=== PATIENT | male | born 1980 ===

== ENCOUNTER → 2021-01-04 14:38 | Outpatient (BNVA) | payer BC, SELFPAY | PROVIDERS: PCP Internal Medicine; Visit Provider Urology ==

== ENCOUNTER 2021-01-22 10:49 | Emergency (ER) | payer BC, SELFPAY ==
--- NOTE | ~2021-01-22 | XR_ITS ---
EXAMINATION: XR ELBOW, LEFT CLINICAL INFORMATION: Pain. COMPARISON: None TECHNIQUE: AP, lateral, and oblique views of the left elbow. FINDINGS: The bones and soft tissues are normal. No fracture or joint effusion. Alignment is anatomic. Joint spaces are maintained. XR/XR elbow LT 2V IMPRESSION: Normal left elbow.
[2021-01-22 11:09] VITALS: BP 142/89; PULSE 77; RESP 18; TEMP 36.5; O2SAT 96; BMI 34.9
--- NOTE | 2021-01-22 11:18 | ED_ITS ---
HPI - General Adult General Chief complaint: Extremity Injury, Lower Stated complaint: L ELBOW PAIN SWOLLEN Time Seen by Provider: 01/22/21 11:18 History of Present Illness HPI narrative: Patient complains of left elbow pain without injury for several days, no numbness no weakness no tingling no fever no other extremity pains, no swelling Related Data Home Medications Medication Instructions Recorded Confirmed betamethasone dipropionate 0.05 % applic TOPICAL BID 07/22/20 09/08/20 topical cream cholecalciferol (vitamin D3) 50 50 mcg PO DAILY 07/22/20 09/08/20 mcg (2,000 unit) tablet clotrimazole-betamethasone 1 0 applic TOPICAL 07/22/20 09/08/20 %-0.05 % topical cream doxycycline hyclate 50 mg capsule mg PO 07/22/20 09/08/20 hydrochlorothiazide 25 mg tablet 25 mg PO DAILY 07/22/20 09/08/20 Previous Rx's Medication Instructions Recorded acetaminophen 300 mg-codeine 30 mg 1 tab PO Q8H #7 tab 01/04/21 tablet diazepam 2 mg tablet 2 mg PO DAILY #2 tab 01/04/21 ibuprofen 600 mg PO Q6H PRN #20 tab 01/22/21 Allergies Allergy/AdvReac Type Severity Reaction Status Date / Time No Known Allergies Allergy Verified 09/08/20 10:46 Review of Systems Review of Systems: Positive for left elbow pain Negatives are no fever no chills no dizziness no weakness no headache no neck pain no back pain no chest pain no numbness weakness or tingling no rash PMFSH Past Medical History Source: nursing notes reviewed Surgical History History of removal of cyst Family History Family History (Updated 08/26/20 @ 13:34 by MARGIE Perez) Father No problems noted. Mother No problems noted. Social History Social History Advance Directives: No Advance Directives Information Provided: No Physical Exam Vital Signs: Vital Signs: Last Vital Signs Temp 97.7 F 01/22/21 11:09 Pulse 77 01/22/21 11:09 Resp 18 01/22/21 11:09 BP 142/89 H 01/22/21 11:09 Pulse Ox 96 01/22/21 11:09 Body Mass Index 34.9 General appearance is no acute distress Head is normocephalic atraumatic Neck is supple and nontender Back is supple and nontender The chest no respiratory distress no chest wall tenderness Extremities the left elbow had lateral tenderness, it had a full range of motion there is no redness or warmth the skin was normal and neurovascular intact distal Pain was reproduced with rotation and extension Skin no rash Neuro no motor sensory deficit Course Course Course Narrative: X-ray of left elbow was normal Exam is consistent with likely tendinitis and patient is referred to orthopedist Discharge Plan Discharge Clinical Impression: Tendinitis of left elbow Patient Disposition: Home, Self-Care Additional Instructions: X-ray of the left elbow was normal, on exam there is no sign of any infection This is most likely an inflammation of tendon and muscle so we will try anti- inflammatory ibuprofen Follow with orthopedist for possible steroid injection Return any time any worse condition or any concerns Prescriptions: New ibuprofen 600 mg tablet 600 mg PO Q6H PRN (Reason: pain) Qty: 20 RF: 0 No Action cholecalciferol (vitamin D3) 50 mcg (2,000 unit) tablet 50 mcg PO DAILY RF: 0 hydrochlorothiazide 25 mg tablet 25 mg PO DAILY RF: 0 doxycycline hyclate 50 mg capsule PO RF: 0 clotrimazole-betamethasone 1-0.05 % cream 0 applic topical RF: 0 betamethasone dipropionate 0.05 % cream topical BID RF: 0 acetaminophen-codeine 300-30 mg tablet 1 tab PO Q8H Qty: 7 RF: 0 diazepam [Valium] 2 mg tablet 2 mg PO DAILY Qty: 2 RF: 0 Referrals: Jeny Heart MD [Physician] - 2 days (Left elbow tendinitis) Stand Alone Forms: Work/School Release
== END 2021-01-22 13:09 | disposition home or self-care (01) ==
PROVIDERS: Emergency Provider Emergency Medicine; PCP Internal Medicine
DX: M77.12 Lateral epicondylitis, left elbow (principal); M25.522 Pain in left elbow; Z79.899 Other long term (current) drug therapy
CPT/HCPCS: 73070; 99283

== ENCOUNTER 2021-09-23 07:34 | Outpatient (REF) | payer BC, SELFPAY ==
[2021-09-23 07:46] LABS: MANUAL DIFF FLAG NO
[2021-09-23 08:40] LABS: Basophils Percent Auto 0.4 % (0-2); Eosinophils Absolute Auto 0.2 X10*3/uL (0.0-0.4); Eosinophils Percent Auto 2.2 % (0-4); Hematocrit 48.4 % (42.0-52.0); Hemoglobin 15.9 g/dl (14.0-18.0); Imm Gran Abs Auto 0.06 X10*3/uL (0.00-0.03); Imm Gran Pct Auto 0.9 % (0.0-0.4); Lymphocytes Absolute Auto 2.4 X10*3/uL (1.2-4.9); Lymphocytes Percent Auto 34.7 % (20-40); Mean Corpuscular HGB Conc 32.9 g/dl (31.0-36.0); Mean Corpuscular Hemoglobin 29.7 pg (27.0-33.0); Mean Corpuscular Volume 90.3 fL (80.0-98.0); Mean Platelet Volume 10.7 fL (9.4-12.4); Monocytes Absolute Auto 0.5 X10*3/uL (0.1-1.2); Monocytes Percent Auto 7.5 % (2-11); Neutrophils Absolute Auto 3.8 x10*3/uL (2.0-8.3); Neutrophils Percent Auto 54.3 % (45-73); Platelet Count 251 X10*3/uL (160-400); Red Blood Count 5.36 X10*6/uL (4.60-5.80); Red Cell Distribution Width 12.8 % (11.0-16.0)
[2021-09-23 09:08] LABS: Alanine Aminotransferase 42 U/L (0-40); Albumin Level 4.4 g/dL (3.5-5.0); Alkaline Phosphatase 104 U/L (39-117); Anion Gap 12 (12-20); Aspartate Amino Transferase 26 U/L (5-37); Bilirubin Total 0.4 mg/dL (0.0-1.0); Blood Urea Nitrogen 14 mg/dL (9-16); Calcium 9.7 mg/dL (8.4-10.2); Carbon Dioxide 29 mmol/L (22-29); Chloride 105 mmol/L (96-108); Cholesterol 180 mg/dL; Estimated Glomerular Filt Rate > 60; Glucose Fasting 95 mg/dL (60-99); HDL Cholesterol 44 mg/dL; LDL Cholesterol Calculated 122 mg/dl; Sodium 141 mmol/L (135-145); Total Protein 7.4 g/dL (6.5-8.0); Triglycerides 73 mg/dL
[2021-09-23 09:33] LABS: Thyroid Stimulating Hormone 2.38 uIU/mL (0.32-4.0)
== END 2021-09-23 07:35 | disposition home or self-care (01) ==
LOC: HO.LAB 07:34
PROVIDERS: PCP Internal Medicine; Visit Provider Internal Medicine
DX: Z00.00 Encounter for general adult medical examination without abnormal findings (principal); E03.9 Hypothyroidism, unspecified
CPT/HCPCS: 36415; 80053; 80061; 84443; 85025

== ENCOUNTER 2021-11-02 10:17 | Outpatient (REF) | payer BC, SELFPAY ==
[2021-11-02 10:54] LABS: Binax Internal Control QC Valid; Binax Now Covid-19 Ag Negative (Negative)
== END 2021-11-02 10:18 | disposition home or self-care (01) ==
LOC: HO.LAB 10:17
PROVIDERS: PCP Internal Medicine; Visit Provider Internal Medicine
DX: Z20.822 Contact with and (suspected) exposure to COVID-19 (principal)
CPT/HCPCS: C9803

== ENCOUNTER 2022-03-18 10:07 | Outpatient (REF) | payer OTHER, SELFPAY ==
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
== END 2022-03-18 10:08 | disposition home or self-care (01) ==
LOC: HO.HMGCX 10:07
PROVIDERS: PCP Nurse Practitioner Primary Care; Visit Provider Nurse Practitioner Acute Care
DX: M54.50 Low back pain, unspecified (principal); M54.6 Pain in thoracic spine; V89.2XXA Person injured in unspecified motor-vehicle accident, traffic, initial encounter; Y93.9 Activity, unspecified; Y92.9 Unspecified place or not applicable; Y99.9 Unspecified external cause status
CPT/HCPCS: 72070; 72100

== ENCOUNTER 2022-04-24 09:34 | Outpatient (REF) | payer BC, SELFPAY ==
--- NOTE | ~2022-04-24 | XR_ITS ---
EXAMINATION: XR wrist RT w scaphoid CLINICAL INFORMATION: Reason for Exam M25.531 - Pain in right wrist COMPARISON: None. TECHNIQUE: PA, oblique, lateral and scaphoid views of the right wrist FINDINGS: No acute fracture or dislocation. Joint spaces and articular surfaces are maintained. No erosive changes. Soft tissues unremarkable XR/XR wrist RT w scaphoid IMPRESSION: . Normal radiographic appearance of the right wrist
== END 2022-04-24 09:35 | disposition home or self-care (01) ==
LOC: HO.HMGCX 09:34
PROVIDERS: PCP Internal Medicine; Visit Provider Nurse Practitioner Family
DX: M25.531 Pain in right wrist (principal)
CPT/HCPCS: 73110

== ENCOUNTER 2023-01-04 08:32 | Emergency (ER) | payer BC, SELFPAY ==
--- NOTE | ~2023-01-04 | CT_ITS ---
EXAMINATION: CT ABDOMEN AND PELVIS WITH CONTRAST CLINICAL INFORMATION: 3 week left-sided abdominal pain COMPARISON: None available. TECHNIQUE: Multidetector volumetric images were obtained from the superior aspect of the liver through the pubic symphysis following administration 85 mL of Omnipaque 350 intravenous contrast. Sagittal and coronal reformatted images were obtained on the technologist's workstation. Oral contrast: No This CT examination was performed using dose optimization techniques as appropriate, variously including the following: *Automated exposure control *Adjustment of mA and/or kV according to patient size (this includes techniques or standardized protocols for targeted exams where dose is matched to indication/reason for exam; i.e. extremities or head) *Use of iterative reconstruction technique DLP: 673 mGy-cm FINDINGS: LUNG BASES: The visualized lung bases are unremarkable. LIVER, GALLBLADDER, AND BILIARY TREE: Liver is enlarged measuring up to 21.0 cm. Decreased hepatic attenuation suggesting hepatic steatosis. No focal hepatic lesion or biliary ductal dilatation is present. The gallbladder is unremarkable with no evidence of radiopaque gallstones, gallbladder wall thickening, or obvious pericholecystic inflammatory changes. PANCREAS: Unremarkable. SPLEEN: Unremarkable. ADRENAL GLANDS: Unremarkable. KIDNEYS AND URETERS: The kidneys are normal in size, shape, and attenuation. No hydronephrosis, hydroureter, or calculi seen. No perinephric stranding. BLADDER: Unremarkable. GASTROINTESTINAL TRACT: Colonic diverticulosis without acute diverticulitis. The small and large bowel are unremarkable. The appendix is unremarkable. ABDOMINAL WALL: No significant hernia is appreciated. LYMPH NODES: Normal. VASCULAR: Abdominal aorta is nonaneurysmal and demonstrates atherosclerotic calcifications. PELVIC VISCERA: Prostate measures up to 4.5 cm. OSSEOUS STRUCTURES: Unremarkable. CT/CT abdomen pelvis w IV con IMPRESSION: 1. No acute process of the abdomen or pelvis identified. 2. Enlarged liver measuring up to 21.0 cm with decreased hepatic attenuation suggesting hepatic steatosis. 3. Colonic diverticulosis without acute diverticulitis.
[2023-01-04 08:38] VITALS: BP 168/90; PULSE 66; RESP 19; TEMP 36.1; O2SAT 98; BMI 34.2
[2023-01-04 08:59] LABS: Appearance Urine Clear; Color Urine Yellow; Glucose Urine UA Negative (Negative); Leukocyte Esterase Urine Negative (Negative); Nitrite Urine Negative (Negative); PH 7.5 (5.0-9.0); Specific Gravity - Urine 1.015 (1.005-1.025); UMIC TRIGGER UACC YES; Urine Blood Trace (Negative); Urine Ketones Negative (Negative); Urine Protein Negative (Neg-Trace)
[2023-01-04 09:01] LABS: Bacteria Urine None Seen (None Seen); Hyaline Casts Urine 0-2 /LPF (0-2); RBC Urine 0-2 /HPF (0-2); Squamous Epithelial Cell Urine 0-2 /HPF (0-2); WBC Urine 0-5 /HPF (0-5)
--- NOTE | 2023-01-04 09:04 | PC.NURSE ---
LLQ abd pain x 3 weeks. Seen at UC and given abx for diverticulitis with unrelieved pain. Finished abx 2 days ago. Denies n/v/d, constipation with bleeding only with straining
[2023-01-04 09:07] LABS: MANUAL DIFF FLAG NO
--- NOTE | 2023-01-04 09:08 | ED_ITS ---
HPI - General Adult General Chief complaint: General Medical Stated complaint: L side pain Time Seen by Provider: 01/04/23 08:55 Source: patient Mode of arrival: ambulatory Limitations: no limitations History of Present Illness HPI narrative: 42-year-old male presents with left-sided abdominal pain. Pain started 3 weeks ago. Describes in left lower quadrant. The pain is intermittent. Currently pain is 7/10. The pain described as sharp. Pain does not radiate. There is no clear relieving or exacerbating features. He denies any nausea, vomiting or diarrhea. His has had some blood in the stool or but only when he feels somewhat constipated. Denies any urinary frequency, urgency or dysuria. Denies any flank pain or testicular pain. He has never had this pain before. He was seen at an urgent care was given a prescription for amoxicillin. He completed that course 2-3 days ago. Related Data Previous Rx's Medication Instructions Recorded cholecalciferol (vitamin D3) 50 50 mcg PO DAILY #90 tabs 06/10/21 mcg (2,000 unit) tablet hydrochlorothiazide 25 mg tablet 25 mg PO DAILY #90 tabs 03/22/22 amoxicillin 875 mg-potassium 1 tab PO BID #14 tabs 12/22/22 clavulanate 125 mg tablet dicyclomine 20 mg tablet 20 mg PO TID PRN abdominal 01/04/23 discomfort #14 tabs dgusoinq-tqvisqhca-dfjvgyemn 3.5 4 drp otic (ears) Q8H #10 mL 01/04/23 mg/mL-10,000 unit/mL-1 % ear solution ondansetron 4 mg disintegrating 4 mg PO Q8H PRN nausea and 01/04/23 tablet vomiting #10 tabs Allergies Allergy/AdvReac Type Severity Reaction Status Date / Time No Known Allergies Allergy Verified 11/21/22 08:29 [facility] Past Medical History Medical History Hypertension Obesity Surgical History History of removal of cyst [place] teeth extracted Family History Family History Father No problems noted. Mother No problems noted. Social History Social History Housing: Apartment Patient Tobacco Use Status: Never used Tobacco Smoked in Last 30 Days: No e-Cigarette/Vaping Use: Never Used Second Hand Smoke Exposure: No Use of substances other than those prescribed or required for medical reasons: Yes Substance Use Type: Marijuana Advance Directives: No Advance Directives Information Provided: No service: No Current occupational status: employed Cognitive needs: No Hearing needs: No Vision needs: No Physical Exam ED Vital Signs: Vital Signs - 24 hr 01/04/23 08:38 01/04/23 10:24 Temperature 97.0 F Pulse Rate 66 64 Respiratory Rate 19 14 Blood Pressure 168/90 H 171/89 H Pulse Oximetry 98 100 Oxygen Delivery Method Room Air Room Air BMI result Body Mass Index 34.2 GEN: Well developed, no acute distress, alert, oriented HEENT: Normocephalic, atraumatic, normal external ears, nose appears normal, no oropharyngeal edema or exudates Eyes: Normal to appearance Neck: Supple, no lymphadenopathy Respiratory: Talks in complete sentences, no respiratory distress, clear to auscultation bilaterally Cardiovascular: Regular rate and rhythm, no murmurs rubs or gallops Abdomen: Soft, nontender, nondistended, no guarding, no rebound Back: No CVA tenderness Extremities: No clubbing cyanosis or edema Neurologic: No focal neurologic deficits, cranial nerves 2-12 intact, strength is 5/5 bilaterally, gait normal Skin: No rash Course Course Course Narrative: 42-year-old male presents with 3 weeks of abdominal pain. The pain is left lower quadrant. Examination was benign. He was on antibiotics. Suspect diverticulitis, colitis, ulcerative colitis. Doubt perforated viscus, appendicitis, cholecystitis, pancreatitis, pyelonephritis. Will obtain a CT scan of the abdomen pelvis to make sure there were no complications from a possible treated diverticulitis. Will provide patient with analgesics and IV fluids Reevaluation(s) Reevaluation #1: The patient is feeling much better. We discussed all results. He will follow up with his primary care provider as needed. Time: 11:46 Medications Administered Discontinued Medications Generic Name Dose Route Start Last Admin Trade Name Freq PRN Reason Stop Dose Admin Sodium Chloride 1,000 mls @ 999 mls/hr 01/04/23 09:15 01/04/23 10:27 Ns IV 03/30/23 10:15 Infused .Q1H1M AMBROCIO Infusion Iohexol 100 ml 01/04/23 10:22 01/04/23 10:22 Iohexol 350 Mg/Ml 100 Ml Infus..Btl IV 01/04/23 10:23 85 ml ONCE ONE Administration Ketorolac Tromethamine 15 mg 01/04/23 09:06 01/04/23 09:19 Ketorolac Tromethamine 15 Mg/Ml Vial IVPUSH 01/04/23 09:07 15 mg ONCE ONE Administration Medical Decision Making Medical Decision Making [facility] Narrative: 42-year-old male presents with 3 weeks of abdominal pain. The pain is left l ower quadrant. Examination was benign. He was on antibiotics. Suspect diverticulitis, colitis, ulcerative colitis. Doubt perforated viscus, appendicitis, cholecystitis, pancreatitis, pyelonephritis. Will obtain a CT scan of the abdomen pelvis to make sure there were no complications from a poss ible treated diverticulitis. Will provide patient with analgesics and IV fluids Differential Diagnosis Differential Diagnoses: The differential diagnosis associated with the presentation includes (Diverticulitis, colitis, IBD, IBS, pyelonephritis, he sitting UTI, obstruction, perforation) Left-sided abdominal pain Admission/Observation Consideration of admission/observation: Escalation of care including admission/observation considered Lab Data [facility] Lab Attestation statement: I reviewed the patient's lab results. 01/04/23 09:04 01/04/23 09:04 Labs: Lab Results 01/04/23 01/04/23 01/04/23 Range/Units 08:52 09:04 09:04 WBC 6.4 (4.8-10.8) X10*3/uL RBC 5.42 (4.60-5.80) X10*6/uL Hgb 16.2 (14.0-18.0) g/dl Hct 47.8 (42.0-52.0) % MCV 88.2 (80.0-98.0) fL MCH 29.9 (27.0-33.0) pg MCHC 33.9 (31.0-36.0) g/dl RDW 12.5 (11.0-16.0) % Plt Count 252 (160-400) X10*3/uL MPV 10.1 (9.4-12.4) fL Immature Gran % (Auto) 0.9 H (0.0-0.4) % Neut % (Auto) 57.1 (45-73) % Lymph % (Auto) 32.6 (20-40) % [place] % (Auto) 6.9 (2-11) % Eos % (Auto) 2.0 (0-4) % Baso % (Auto) 0.5 (0-2) % Lymph # (Auto) 2.1 (1.2-4.9) X10*3/uL [place] # (Auto) 0.4 (0.1-1.2) X10*3/uL Eos # (Auto) 0.1 (0.0-0.4) X10*3/uL Baso # (Auto) 0.0 (0.0-0.2) X10*3/uL Abs Immat Gran (auto) 0.06 H (0.00-0.03) X10*3/uL Absolute Neuts (auto) 3.7 (2.0-8.3) x10*3/uL Absolute Nucleated RBC 0.000 (0.0-0.012) X10*3/uL Nucleated RBC % (auto) 0.0 (0.0-0.2) /100WBC Sodium 141 (135-145) mmol/L Potassium 4.3 (3.3-5.1) mmol/L Chloride 103 (96-108) mmol/L Carbon Dioxide 28 (22-29) mmol/L Anion Gap 14 (12-20) BUN 16 (9-16) mg/dL Creatinine 1.05 (0.5-1.4) mg/dL Estim Creat Clear Calc 106.1 Estimated GFR > 60 Random Glucose 103 (60-115) mg/dL Calcium 9.3 (8.4-10.2) mg/dL Total Bilirubin 0.4 (0.0-1.0) mg/dL AST 32 (5-37) U/L ALT 45 H (0-40) U/L Alkaline Phosphatase 93 (39-117) U/L Total Protein 7.0 (6.5-8.0) g/dL Albumin 4.3 (3.5-5.0) g/dL Urine Color Yellow Urine Appearance Clear Urine pH 7.5 (5.0-9.0) Ur Specific [place] 1.015 (1.005-1.025) Urine Protein Negative (Neg-Trace) mg/dL Urine Glucose (UA) Negative (Negative) mg/dL Urine Ketones Negative (Negative) mg/dL Urine Blood Trace H (Negative) Urine Nitrite Negative (Negative) Ur Leukocyte Esterase Negative (Negative) Urine RBC 0-2 (0-2) /HPF Urine WBC 0-5 (0-5) /HPF Ur Squamous Epith Cells 0-2 (0-2) /HPF Urine Bacteria None Seen (None Seen) Hyaline Casts 0-2 (0-2) /LPF Independent Interpretation I performed an independent interpretation of an: CT Scan (no acute pathology explaining symptoms) Radiology Impression Discussion of test interpretation with radiology: I have reviewed the radiologis t's reading. ( CT/CT abdomen pelvis w IV con IMPRESSION: 1. No acute process of the abdomen or pelvis identified. 2. Enlarged liver measuring up to 21.0 cm with decreased hepatic attenuation suggesting hepatic steatosis. 3. Colonic diverticulosis without acute diverticulitis. Dictated By:) Prescription Management I considered prescription management with: Pain Medication and Antibiotic Discharge Plan Discharge Clinical Impression: Acute left lower quadrant pain Patient Disposition: Home, Self-Care Instructions: Abdominal Pain (ED) Prescriptions: New ondansetron 4 mg tablet,disintegrating 4 mg PO Q8H PRN (Reason: nausea and vomiting) Qty: 10 0RF dicyclomine 20 mg tablet 20 mg PO TID PRN (Reason: abdominal discomfort) Qty: 14 0RF execpvxu-goaklshwy-RJ 3.5-10,000-1 mg/mL-unit/mL-% solution 4 drp otic (ears) Q8H Qty: 10 0RF No Action cholecalciferol (vitamin D3) 50 mcg (2,000 unit) tablet 50 mcg PO DAILY Qty: 90 8RF hydrochlorothiazide 25 mg tablet 25 mg PO DAILY Qty: 90 8RF amoxicillin-pot clavulanate 875-125 mg tablet 1 tab PO BID Qty: 14 0RF Referrals: Sana Grullon MD [Primary Care Provider] - 5 days Stand Alone Forms: Work/School Release
[2023-01-04 09:09] LABS: Basophils Percent Auto 0.5 % (0-2); Eosinophils Absolute Auto 0.1 X10*3/uL (0.0-0.4); Hematocrit 47.8 % (42.0-52.0); Hemoglobin 16.2 g/dl (14.0-18.0); Imm Gran Abs Auto 0.06 X10*3/uL (0.00-0.03); Imm Gran Pct Auto 0.9 % (0.0-0.4); Lymphocytes Absolute Auto 2.1 X10*3/uL (1.2-4.9); Lymphocytes Percent Auto 32.6 % (20-40); Mean Corpuscular HGB Conc 33.9 g/dl (31.0-36.0); Mean Corpuscular Hemoglobin 29.9 pg (27.0-33.0); Mean Corpuscular Volume 88.2 fL (80.0-98.0); Mean Platelet Volume 10.1 fL (9.4-12.4); Monocytes Absolute Auto 0.4 X10*3/uL (0.1-1.2); Monocytes Percent Auto 6.9 % (2-11); Neutrophils Absolute Auto 3.7 x10*3/uL (2.0-8.3); Neutrophils Percent Auto 57.1 % (45-73); Platelet Count 252 X10*3/uL (160-400); Red Blood Count 5.42 X10*6/uL (4.60-5.80); Red Cell Distribution Width 12.5 % (11.0-16.0); White Blood Count 6.4 X10*3/uL (4.8-10.8)
[2023-01-04] MEDS: Ketorolac Tromethamine 15 MG/ML VIAL IVPUSH (09:19)
[2023-01-04] MEDS: 0.9 % Sodium Chloride 1,000 ML 999 ML IV (09:19)
[2023-01-04 09:32] LABS: Alanine Aminotransferase 45 U/L (0-40); Albumin Level 4.3 g/dL (3.5-5.0); Alkaline Phosphatase 93 U/L (39-117); Anion Gap 14 (12-20); Aspartate Amino Transferase 32 U/L (5-37); Bilirubin Total 0.4 mg/dL (0.0-1.0); Blood Urea Nitrogen 16 mg/dL (9-16); Calcium 9.3 mg/dL (8.4-10.2); Carbon Dioxide 28 mmol/L (22-29); Chloride 103 mmol/L (96-108); Creatinine Clr Calc Pharmacy 106.1; Estimated Glomerular Filt Rate > 60; Glucose Random 103 mg/dL (60-115); Potassium 4.3 mmol/L (3.3-5.1); Sodium 141 mmol/L (135-145)
[2023-01-04] MEDS: iohexoL 350 MG/ML 100 ML INFUS..BTL IV (10:22)
[2023-01-04 10:24] VITALS: BP 171/89; PULSE 64; RESP 14; O2SAT 100
--- NOTE | 2023-01-04 10:27 | PC.NURSE ---
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
== END 2023-01-04 12:14 | disposition home or self-care (01) ==
PROVIDERS: Emergency Provider Emergency Medicine; PCP Internal Medicine
DX: R10.32 Left lower quadrant pain (principal); Z79.899 Other long term (current) drug therapy
CPT/HCPCS: 36415; 74177; 80053; 81001; 85025; 96361; 96374; 99284; J1885; Q9967

== ENCOUNTER 2023-04-24 08:45 | Outpatient (AMB) | payer BC, SELFPAY ==
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
[2023-04-24 08:53] VITALS: BP 140/98; PULSE 78; TEMP 36.7; O2SAT 98
== END 2023-04-24 10:08 | disposition home or self-care (01) ==
PROVIDERS: PCP Internal Medicine; Visit Provider Internal Medicine
DX: Z13.9 Encounter for screening, unspecified (principal); J06.9 Acute upper respiratory infection, unspecified
CPT/HCPCS: 87880; 99213

== ENCOUNTER 2023-12-20 09:04 | Outpatient (AMB) | payer OTHER, SELFPAY ==
[2023-12-20 09:06] VITALS: BP 144/98; PULSE 68; O2SAT 98; BMI 36.5
--- NOTE | 2023-12-20 09:06 | MHC.PC.OV ---
Vital Signs 12/20/23 09:06 Height 5 ft 8 in Weight 240 lb BMI 36.5 BP 144/98 H Blood Pressure Location Lt brachial Position Sitting Pulse 68 Pulse Source Pulse Oximeter Pulse Oximetry (%) 98 Oxygen Delivery Method Room Air Intake Visit Reasons: f/u HTN Cafeteria Or Lunchroom Checker Required: No Professional Caster: Not Required per policy Accompanied by: Self / Same As Patient Allergies No Known Allergies Allergy (Verified 12/20/23 09:07) Medication List - Last Reconciled 12/20/23 by Ponce Aceves MD amoxicillin 500 mg PO BID cholecalciferol (vitamin D3) 50 mcg PO DAILY dicyclomine 20 mg PO TID PRN hydrochlorothiazide 25 mg PO DAILY Tobacco use date assessed: 12/20/23 Dental Screening Dental Screen Date: 12/20/23 Did you have a dental visit in the last 12 months?: Yes Did you have a dental problem in the last 6 months where you did not have access to dental care?: No Was dental information given to patient?: Patient has dentist HPI f/u HTN HPI Details HTN on Rx; dietary indiscretion PFSH Medical History Hypertension Obesity Surgical History [place] teeth extracted History of removal of cyst Family History Father No problems noted. Mother No problems noted. Social History Housing: Apartment Patient Tobacco Use Status: Never used Tobacco e-Cigarette/Vaping Use: Never Used Second Hand Smoke Exposure: No Substance Use Type: Marijuana service: No Current occupational status: employed Cognitive needs: No Hearing needs: No Vision needs: No Questionnaire PHQ-9 Over the last 2 weeks, how often have you been bothered by any of the following problems? 1. Little interest or pleasure in doing things: not at all 2. Feeling down, depressed, or hopeless: not at all 3. Trouble falling or staying asleep, or sleeping too much: not at all 4. Feeling tired or having little energy: not at all 5. Poor appetite or overeating: not at all 6. Feeling bad about yourself - or that you are a failure or have let yourself or your family down: not at all 7. Trouble concentrating on things, such as reading the newspaper or watching television: not at all 8. Moving or speaking so slowly that other people could have noticed. Or the opposite - being so fidgety or restless that you have been moving around a lot more than usual: not at all 9. Thoughts that you would be better off or of hurting yourself in some way: not at all Total score: 0 Depression Screening Interpretation: Negative Depression Screening Done: Yes 88888 - PHQ-9 Billing: Yes Source: Developed by Drs. Junior Edouard, Kelly Goodwin, Papa Lamb and colleagues, with an educational trinity from [employer]. Thrive Questionnaire Date Thrive assessed: 12/20/23 I am a: Patient What is your living situation today?: I have a steady place to live Within the past 12 months, did the food you bought not last and you didn't have the money to get more?: Never true Within the past 12 months, did you worry whether your food would run out before you got money to buy more?: Never true Do you have trouble paying for medicines?: No Do you have trouble getting transportation to medical appointments?: No Do you have trouble paying your heating and electricity bill?: No Do you have trouble taking care of your child, family member or friend?: No Do you have trouble with day-to-day activities such as bathing, preparing meals, shopping, managing finances, etc.?: No Are you currently unemployed and looking for a job?: No Are you interested in more education?: No Please select the resources that you would like help with: None THRIVE Score: 0 AUDIT C Alcohol Use Questionnaire (AUDIT-C) 1. How often do you have a drink containing alcohol?: 2-3 times a week 2. How many drinks containing alcohol do you have on a typical day when you are drinking?: 3 or 4 3. How often do you have six or more drinks on one occasion?: Never Total Score: 4 Score Reviewed/Action Taken: Yes ERLINDA-7 AMB Questionnaire ERLINDA-7 Date ERLINDA - 7 assessed: 12/20/23 Feeling nervous, anxious, or on edge: 0 = Not at all Not being able to stop or control worryin = Not at all Worrying too much about different things: 0 = Not at all Trouble relaxin = Not at all Being so restless that it is hard to sit still: 0 = Not at all Becoming easily annoyed or irritable: 0 = Not at all Feeling afraid as if something awful might happen: 0 = Not at all Total ERLINDA-7 score (0-4 normal; 5-9 mild; 10-14 moderate; 15-21 severe): 0 Source: Developed by Drs. Junior Edouard, Kelly Goodwin, Papa Lamb and colleagues, with an educational trinity from [employer]. ERLINDA-7 Assessment Billing ERLINDA-7 Assessment Tool: ERLINDA-7 Assessment 00384 Review of Systems Const Denies chills, Denies headache(s) and Denies weight loss ENT Denies headache(s) Card Denies chest pain, Denies syncope, Denies irregular heart rhythm and Denies dyspnea Resp Denies chest congestion, Denies cough and Denies dyspnea GI Denies abdominal pain, Denies change in stool character, Denies nausea and Denies vomiting Musc Denies deformity and Denies joint swelling Neuro Denies syncope and Denies headache(s) Physical exam (Primary Care) Vital Signs: Last Vital Signs Pulse 68 12/20/23 09:06 BP 144/98 H 12/20/23 09:06 Pulse Ox 98 12/20/23 09:06 Oxygen Delivery Method Room Air 12/20/23 09:06 BMI result Body Mass Index 36.5 Tobacco/Smoking Status: Tobacco use Status Tobacco use date assessed 12/20/23 12/20/23 09:08 Patient Tobacco Use Status Never used Tobacco 12/20/23 09:08 e-Cigarette/Vaping Use Never Used 12/20/23 09:08 PHQ-9: PHQ-9 Score PHQ-9: Total score 0 12/20/23 09:13 Depression Screening Interpretation: Negative Thrive Assessment: Date of Thrive Assessment Date Thrive assessed 12/20/23 12/20/23 09:08 Const General: cooperative, comfortable, no acute distress and alert Neck Neck: Yes no lymphadenopathy Thyroid: Thyroid normal Resp Effort & Inspection: normal respiratory effort Auscultation: clear to auscultation bilaterally Percussion: percussion normal Cardio Jugular venous distension: no JVD Palpation: normal PMI Rate: regular rate Rhythm: regular rhythm Heart sounds: S1 normal heart sound present and S2 normal heart sound present GI Inspection: Yes normal to inspection Palpation (GI): No hepatosplenomegaly present Skin General skin exam: no rashes or lesions noted Extrem General: Yes no clubbing, cyanosis or edema Assessment and Plan Assessment & Plan (1) Hypertension: Code(s): I10 - Essential (primary) hypertension Plan: same rx Orders: Orders Lipid Panel Today E78.5 - Hyperlipidemia, unspecified Complete Blood Count Auto Diff Today D64.9 - Anemia, unspecified Comprehensive [place]. Panel Fast Today N28.9 - Disorder of kidney and ureter, unspecified Medications: Refilled dicyclomine 20 mg PO TID PRN 14 tabs 0RF abdominal discomfort doxycycline hyclate 50 mg PO DAILY 30 caps 8RF Coding Level of Care Code Est Pt Level 3 (87469) Diagnoses Hypertension I10 Additional Codes ERLINDA-7 Assessment Billing - ERLINDA-7 Assessment Tool: ERLINDA-7 Assessment 77408 ([id number])
== END 2023-12-20 11:16 | disposition home or self-care (01) ==
PROVIDERS: PCP Internal Medicine; Visit Provider Internal Medicine
DX: I10 Essential (primary) hypertension (principal)
CPT/HCPCS: 99213

== ENCOUNTER 2023-12-21 09:05 | Outpatient (REF) | payer OTHER, SELFPAY ==
[2023-12-21 09:27] LABS: MANUAL DIFF FLAG NO
[2023-12-21 09:37] LABS: Basophils Percent Auto 0.4 % (0-2); Eosinophils Absolute Auto 0.1 X10*3/uL (0.0-0.4); Eosinophils Percent Auto 1.1 % (0-4); Hematocrit 48.1 % (42.0-52.0); Hemoglobin 16.4 g/dl (14.0-18.0); Imm Gran Abs Auto 0.05 X10*3/uL (0.00-0.03); Imm Gran Pct Auto 0.6 % (0.0-0.4); Lymphocytes Absolute Auto 2.1 X10*3/uL (1.2-4.9); Mean Corpuscular HGB Conc 34.1 g/dl (31.0-36.0); Mean Corpuscular Volume 87.9 fL (80.0-98.0); Monocytes Absolute Auto 0.5 X10*3/uL (0.1-1.2); Monocytes Percent Auto 5.8 % (2-11); Neutrophils Absolute Auto 5.3 x10*3/uL (2.0-8.3); Neutrophils Percent Auto 66.1 % (45-73); Platelet Count 247 X10*3/uL (160-400); Red Blood Count 5.47 X10*6/uL (4.60-5.80); Red Cell Distribution Width 12.6 % (11.0-16.0)
[2023-12-21 10:03] LABS: Alanine Aminotransferase 57 U/L (0-40); Albumin Level 4.4 g/dL (3.5-5.0); Alkaline Phosphatase 96 U/L (39-117); Anion Gap 14 (12-20); Aspartate Amino Transferase 31 U/L (5-37); Bilirubin Total 0.2 mg/dL (0.0-1.0); Blood Urea Nitrogen 13 mg/dL (9-16); Calcium 9.5 mg/dL (8.4-10.2); Carbon Dioxide 27 mmol/L (22-29); Chloride 102 mmol/L (96-108); Cholesterol 196 mg/dL (<200); Estimated Glomerular Filt Rate > 60; Glucose Fasting 107 mg/dL (60-99); HDL Cholesterol 40 mg/dL (>40); LDL Cholesterol Calculated 122 mg/dL (<100); Potassium 3.8 mmol/L (3.3-5.1); Sodium 139 mmol/L (135-145); Total Protein 7.8 g/dL (6.5-8.0); Triglycerides 174 mg/dL (<150)
== END 2023-12-21 09:06 | disposition home or self-care (01) ==
LOC: HO.LAB 09:05
PROVIDERS: PCP Internal Medicine; Visit Provider Internal Medicine
DX: N28.9 Disorder of kidney and ureter, unspecified (principal); D64.9 Anemia, unspecified; E78.5 Hyperlipidemia, unspecified
CPT/HCPCS: 36415; 80053; 80061; 85025

== ENCOUNTER 2024-02-12 06:07 | Emergency (ER) | payer OTHER, SELFPAY ==
[2024-02-12 06:24] VITALS: BP 149/99; PULSE 69; RESP 14; TEMP 36.1; O2SAT 97; BMI 34.8
--- NOTE | 2024-02-12 08:49 | PC.NURSE ---
Pt ambulated with steady gait from waiting room, reporting an abscess on the back right side of head x3 days and has noticed it getting bigger. Reports intermittent h/a when lying down. NO drainage noted. Reports taking Tylenol last night with some help until he woke up this morning. Pt reports getting a haircut last week. Pt with no apparent distress, call rodriguez within reach, awaiting provider.
--- NOTE | 2024-02-12 09:24 | ED_ITS ---
HPI - General Adult General Chief complaint: General Medical Stated complaint: abscess on back of head, for about 4 days Time Seen by Provider: 02/12/24 09:08 Source: patient, RN notes reviewed and old records reviewed Mode of arrival: ambulatory Limitations: no limitations History of Present Illness HPI narrative: 43 year old male with pmhx significant for HTN, anxiety, and obesity presents to the ED today for evaluation of abscess to the back of his head x2 weeks. Admits to noticing a pimple to the back of his head 2 weeks ago that he scratches. He then went and got a haircut 5 days ago and since this time, the pimple has become more irritated. He can now feel a bump on the back of his head. Denies drainage or bleeding. Admits to headache last night while lying down. He took OTC Tylenol last night which temporarily relieved his headache. Denies vision changes, dizziness, syncope, fevers, chills, N/V, chest pain, sob. No IVDU. Related Data Previous Rx's ?Medication ?Instructions ?Recorded cholecalciferol (vitamin D3) 50 50 mcg PO DAILY #90 tabs 06/10/21 mcg (2,000 unit) tablet hydrochlorothiazide 25 mg tablet 25 mg PO DAILY #90 tabs 03/27/23 amoxicillin 500 mg tablet 500 mg PO BID #28 tabs 04/24/23 dicyclomine 20 mg tablet 20 mg PO TID PRN abdominal 12/20/23 discomfort #14 tabs doxycycline hyclate 50 mg capsule 50 mg PO DAILY #30 caps 12/20/23 [id number]-ulwamucbxkrny-dcpyzoep 1 cap PO Q8H PRN pain (scale score 02/12/24 50 mg-300 mg-40 mg capsule 7-10) #6 caps (Fioricet) cephalexin 500 mg capsule 500 mg PO QID 5 days #20 caps 02/12/24 doxycycline monohydrate 100 mg 100 mg PO BID 5 days #10 caps 02/12/24 capsule Allergies Allergy/AdvReac Type Severity Reaction Status Date / Time No Known Allergies Allergy Verified 02/12/24 06:26 Review of Systems 2 Review of Systems: Constitutional: No fever, chills, fatigue, night sweats, weight changes ENT/Mouth: No ear pain, hearing loss, nasal congestion, sinus pain, rhinorrhea, sore throat Eyes: No eye pain, swelling, redness, vision changes, discharge Cardio: No chest pain, palpitations, NEVAREZ, orthopnea, peripheral edema Pulm: No SOB, cough, sputum, wheezing, dyspnea, hemoptysis GI: No nausea, vomiting, hematemesis, abdominal pain, diarrhea, constipation, hematochezia, melena : No irregular bleeding, dysuria, frequency, urgency, hesitancy, hematuria, flank pain, urinary flow changes, urinary incontinence or retention MSK: No back pain, neck pain, joint pain, myalgias Skin: No rashes, +cellulitis Neuro: No weakness, numbness, paresthesias, LOC, dizziness, +headache Psych: No anxiety/panic, depression, SI/HI, AH/VH All other systems reviewed and are negative. [facility] Past Medical History Attestation statement: The following information was validated with the patient. Source: old records reviewed and nursing notes reviewed Medical History Obesity Hypertension Surgical History [place] teeth extracted History of removal of cyst Family History Family History Father No problems noted. Mother No problems noted. Social History Social History Housing: Apartment Patient Tobacco Use Status: Never used Tobacco e-Cigarette/Vaping Use: Never Used Second Hand Smoke Exposure: No Substance Use Type: Marijuana Advance Directives: No Advance Directives Information Provided: No Do you have a plan to hurt others: No Plan service: No Current occupational status: employed Cognitive needs: No Hearing needs: No Vision needs: No Physical Exam ED Vital Signs: Vital Signs - 24 hr 02/12/24 06:24 02/12/24 10:14 Temperature 97.0 F 98.2 F Pulse Rate 69 121 H Respiratory Rate 14 16 Blood Pressure 149/99 H 181/94 H Pulse Oximetry 97 98 Oxygen Delivery Method Room Air Room Air BMI result Body Mass Index 34.8 Patient hypertensive, vitals otherwise WNL Const General: cooperative, no acute distress, alert and awake Orientation/consciousness: patient oriented x3 Limitations: no limitations HENMT Head: Yes normal to inspection Head images: 2 1. small, 1.5 cm area of erythema and induration with minimal amount of crusting. no active drainage, discharge or bleeding. ttp. Indurated. No palpable fluctuance. Eyes General: appearance normal, both eyes and all related structures Conjunctivae: conjunctivae normal Sclerae: sclerae normal Pupils: Equal, round and reactive pupils present Neck Neck: Yes normal visual inspection, Yes full ROM, Yes no lymphadenopathy and Yes no meningeal signs Resp Effort & Inspection: normal respiratory effort Auscultation: clear to auscultation bilaterally Cardio Rate: regular rate Rhythm: regular rhythm Neuro General: patient oriented x3, gait normal, no meningeal signs and no focal motor deficits Cranial nerves: Yes Equal, round and reactive pupils present Gait exam (Neuro): Normal gait present Extrem General: Yes normal to inspection and Yes full ROM Course Course Course Narrative: 1000-- small area of cellulitis noted to back of head. No area of fluctuance that would warrant drainage however I was able to express some blood. Routine culture and Gram stain sent to lab. I informed patient that we will call him with any concerning results. I will be sending Keflex and doxy to pharmacy for cellulitis. No concern for acute systemic infection. Patient has remained stable throughout ED visit today. Discussed worrisome signs and symptoms and when to return to the ED. All questions answered at this time. Patient is agreeable with disposition and stable for discharge. Medications Administered Discontinued Medications Generic Name Dose Route Start Last Admin Trade Name Freq PRN Reason Stop Dose Admin Acetaminophen/Butalbital/Caffeine 1 tab 02/12/24 09:29 02/12/24 09:46 Butalb/Acetamin/Caff 50/325/40 Tablet PO 02/12/24 09:30 1 tab ONCE ONE Administration Cephalexin HCl 500 mg 02/12/24 09:33 02/12/24 09:47 Cephalexin 500 Mg Capsule PO 02/12/24 09:34 500 mg ONCE ONE Administration Doxycycline Monohydrate 100 mg 02/12/24 09:33 02/12/24 09:47 Doxycycline Monohydrate 100 Mg Capsule PO 02/12/24 09:34 100 mg ONCE ONE Administration Medical Decision Making Medical Decision Making MDM Narrative: 43 year old male with pmhx significant for HTN, anxiety, and obesity presents to the ED today for evaluation of abscess to the back of his head x2 weeks. Patient hypertensive, vitals otherwise WNL. He is nontoxic appearing in no acute distress. On exam, small, 1.5 cm area of erythema and induration with minimal amount of crusting. no active drainage, discharge or bleeding. ttp. Indurated. No palpable fluctuance. No rashes. Exam nonfocal. Differential diagnosis includes cellulitis, impetigo, ingrown hair follicle, insect bite. Low suspicion for abscess. Plan for gram stain and culture, abx admin, and discharge. Differential Diagnosis Differential Diagnoses: The differential diagnosis associated with the presentation includes as above. Admission/Observation Consideration of admission/observation: Escalation of care including admission/observation considered not indicated. External Record Review External record reviewed: Inpatient record Tests considered The following testing was considered but not selected: I considered ordering labs however no concern for systemic infection, not indicated. Prescription Management I considered prescription management with: Pain Medication and Antibiotic (Keflex, doxy) Social Determinants Patient?s care significantly limited by Social Determinants of Health including: Other Social Determinant of Health Critical Care Time Critical Care Time Critical Care Time: No Discharge Plan Discharge Clinical Impression: Cellulitis of head except face Patient Disposition: Home, Self-Care Instructions: Cellulitis (ED) Additional Instructions: Keflex is an antibiotic that has been sent to your pharmacy. Take this 4 times daily over the next 5 days as prescribed. Doxycycline is another antibiotic that has been sent to your pharmacy. Take this twice daily (every 12 hours) for the next 5 days. A small sample of the lesion was sent to the lab for further testing to ensure the antibiotics you are on are the correct coverage for bacteria. You will be called in a few days if the antibiotics need to be adjusted. Fioricet has been sent to your pharmacy for headache. Take this every 8 hours as needed for headache. do not take this with tylenol. You may also take Motrin at home. Follow up with your PCP. As discussed, return with new or worsening symptoms. In the case of an emergency call 911. Prescriptions: New cephalexin 500 mg capsule 500 mg PO QID 5 Days Qty: 20 0RF doxycycline monohydrate 100 mg capsule 100 mg PO BID 5 Days Qty: 10 0RF fioblrrhnv-lxfrluhjvwxiw-qkfq [Fioricet] 50-300-40 mg capsule 1 cap PO Q8H PRN (Reason: pain (scale score 7-10)) Qty: 6 0RF No Action cholecalciferol (vitamin D3) 50 mcg (2,000 unit) tablet 50 mcg PO DAILY Qty: 90 8RF hydrochlorothiazide 25 mg tablet 25 mg PO DAILY Qty: 90 8RF amoxicillin 500 mg tablet 500 mg PO BID Qty: 28 0RF dicyclomine 20 mg tablet 20 mg PO TID PRN (Reason: abdominal discomfort) Qty: 14 0RF doxycycline hyclate 50 mg capsule 50 mg PO DAILY Qty: 30 8RF Referrals: Sana Grullon MD [Primary Care Provider] - Stand Alone Forms: Work/School Release Interventions: ED Discharge Assessment Last Done: 02/12/24 10:14 Discharge Date/Time: 02/12/24 10:16 Print Language: Lithuanian
[2024-02-12] MEDS: Butalb/Acetamin/Caff 50/325/40 TABLET 1 TAB PO (09:46)
[2024-02-12] MEDS: cephALEXin 500 MG CAPSULE PO (09:47)
[2024-02-12] MEDS: Doxycycline Monohydrate 100 MG CAPSULE PO (09:47)
[2024-02-12 10:14] VITALS: BP 181/94; PULSE 121; RESP 16; TEMP 36.8; O2SAT 98
== END 2024-02-12 10:16 | disposition home or self-care (01) ==
PROVIDERS: Emergency Provider Emergency Medicine Emergency Medical Services; PCP Internal Medicine
DX: L03.811 Cellulitis of head [any part, except face] (principal); I10 Essential (primary) hypertension
CPT/HCPCS: 87070; 87077; 87186; 87205; 99283; 99284

== ENCOUNTER 2024-05-06 08:46 | Outpatient (AMB) | payer OTHER, SELFPAY ==
[2024-05-06 09:25] VITALS: BP 162/82; PULSE 67; TEMP 36.6; O2SAT 97
--- NOTE | 2024-05-06 09:25 | MHC.OFFWIV ---
Intake Vital Signs 05/06/24 09:25 Height 5 ft 8 in BP 162/82 H Blood Pressure Location Rt brachial Position Sitting Pulse 67 Pulse Source Pulse Oximeter Temp 97.9 F Temp Source Oral Pulse Oximetry (%) 97 Intake Visit Reasons: possible double ear infection Intake Note: pt is here for double ear infection and states he has mrsa Patient Tobacco Use Status: Never used Tobacco Allergies No Known Allergies Allergy (Verified 05/06/24 09:25) Do you need a note to return to daycare/school/sports/work: Yes HPI HPI Comments History of Present Illness Details Pt presents with bilateral ear infection seen at the ER 1 week ago. He was diagnosed with MRSA infection and prescribed Bactrim for 7 days and told to RT for refill if necessary. States he is still having pain but improved. [facility] Medical History Obesity Hypertension Surgical History [place] teeth extracted History of removal of cyst Family History Father No problems noted. Mother No problems noted. Social History Housing: Apartment Patient Tobacco Use Status: Never used Tobacco e-Cigarette/Vaping Use: Never Used Second Hand Smoke Exposure: No Substance Use Type: Marijuana service: No Current occupational status: employed Cognitive needs: No Hearing needs: No Vision needs: No Review of Systems Const All systems reviewed & are unremarkable except as noted in HPI and below Eyes Reports no additional complaints ENT Reports otalgia Card Reports no additional complaints Resp Reports no additional complaints GI Reports no additional complaints Physical Exam Vital Signs: Last Vital Signs Temp 97.9 F 05/06/24 09:25 Pulse 67 05/06/24 09:25 BP 162/82 H 05/06/24 09:25 Pulse Ox 97 05/06/24 09:25 Const General: healthy appearing and no acute distress HEENT Head: Yes normal to inspection, Yes normocephalic and Yes atraumatic Ears: hearing grossly normal bilaterally, TM's normal bilaterally and Abnormal EAC present erythema General nose exam: Normal external nose present Face and sinus: Yes normal facial exam Resp Effort & Inspection: normal respiratory effort Auscultation: clear to auscultation bilaterally Cardio Rate: regular rate Rhythm: regular rhythm Assessment & Plan Assessment & Plan (1) MRSA (methicillin resistant Staphylococcus aureus): Code(s): A49.02 - Methicillin resistant Staphylococcus aureus infection, unspecified site Plan: refill the Bactrim as indicated by the ER. F/u with PC Plan see plan Medications: New sulfamethoxazole-trimethoprim 800-160 mg (Bactrim DS) 1 tab PO BID 7 days 14 tabs 0RF Coding Level of Care Code Est Pt Level 3 (54449) Diagnoses MRSA (methicillin resistant Staphylococcus aureus) A49.02
== END 2024-05-06 10:08 | disposition home or self-care (01) ==
PROVIDERS: PCP Internal Medicine; Visit Provider Physician Assistant Medical
DX: A49.02 Methicillin resistant Staphylococcus aureus infection, unspecified site (principal)
CPT/HCPCS: 99213

== ENCOUNTER 2024-08-24 08:37 | Emergency (ER) | payer BC, SELFPAY ==
--- NOTE | ~2024-08-24 | XR_ITS ---
EXAMINATION: XR RIBS, RIGHT CLINICAL INFORMATION: Cough. Question fracture. COMPARISON: None available. TECHNIQUE: PA view the chest as well as 3 views of the right ribs. FINDINGS: Lungs are clear. No consolidation, pneumothorax, or pleural effusion. The cardiomediastinal silhouette and pulmonary vasculature are normal. Osseous structures are unremarkable. Ribs are intact. No fractures are identified. XR/XR ribs RT min 3V w CXR1V IMPRESSION: No displaced fracture. Electronically signed by: Bigg Aguayo MD 08/24/2024 10:26 AM ROB
[2024-08-24 08:42] VITALS: BP 163/79; PULSE 65; RESP 20; TEMP 36.6; O2SAT 98; BMI 33.9
[2024-08-24 08:59] LABS: MANUAL DIFF FLAG NO
[2024-08-24 09:00] LABS: Basophils Percent Auto 0.3 % (0-2); Eosinophils Absolute Auto 0.1 X10*3/uL (0.0-0.4); Eosinophils Percent Auto 1.7 % (0-4); Hematocrit 47.2 % (42.0-52.0); Hemoglobin 16.1 g/dl (14.0-18.0); Imm Gran Abs Auto 0.04 X10*3/uL (0.00-0.03); Imm Gran Pct Auto 0.7 % (0.0-0.4); Lymphocytes Absolute Auto 1.8 X10*3/uL (1.2-4.9); Lymphocytes Percent Auto 30.6 % (20-40); Mean Corpuscular HGB Conc 34.1 g/dl (31.0-36.0); Mean Corpuscular Hemoglobin 30.4 pg (27.0-33.0); Mean Corpuscular Volume 89.2 fL (80.0-98.0); Mean Platelet Volume 10.5 fL (9.4-12.4); Monocytes Absolute Auto 0.5 X10*3/uL (0.1-1.2); Monocytes Percent Auto 8.5 % (2-11); Neutrophils Absolute Auto 3.4 x10*3/uL (2.0-8.3); Neutrophils Percent Auto 58.2 % (45-73); Platelet Count 210 X10*3/uL (160-400); Red Blood Count 5.29 X10*6/uL (4.60-5.80); Red Cell Distribution Width 12.5 % (11.0-16.0); White Blood Count 5.9 X10*3/uL (4.8-10.8)
[2024-08-24 09:01] LABS: Appearance Urine Clear; Color Urine Yellow; Glucose Urine UA Negative (Negative); Leukocyte Esterase Urine Negative (Negative); Nitrite Urine Negative (Negative); PH 7.5 (5.0-9.0); Specific Gravity - Urine 1.015 (1.005-1.025); Urine Blood Negative (Negative); Urine Ketones Negative (Negative); Urine Protein Negative (Neg-Trace)
--- NOTE | 2024-08-24 09:07 | ED.GENADULT ---
HPI - General Adult General Chief complaint: General Medical Stated complaint: R flank pain Time Seen by Provider: 08/24/24 09:02 Source: patient Mode of arrival: ambulatory Limitations: no limitations History of Present Illness ED Provider: Alysha EMMANUEL narrative: Patient is a 43-year-old male with history of HTN presenting to the emergency department with complaint of right sided rib/flank pain. States pain is worse with movement and improves with rest. Reports recent URI with frequent coughing and fevers. Denies fevers for past several days. Denies any hematuria, dysuria, frequency or other urinary symptoms. Has not taken any rynk-mef-lwfunka medications for symptoms. MD complaint: rib pain Onset (ago): day(s) Severity: severe Quality: aching Pain Consistency: colicky Relieving factors: rest Exacerbating factors: movement Associated symptoms: cough Treatments prior to arrival: none Related Data Previous Rx's ?Medication ?Instructions ?Recorded cholecalciferol (vitamin D3) 50 50 mcg PO DAILY #90 tabs 06/10/21 mcg (2,000 unit) tablet doxycycline hyclate 50 mg capsule 50 mg PO DAILY #30 caps 12/20/23 dmhnwstkve-qtnjbnkfzvvjc-rmojmywe 1 cap PO Q8H PRN pain (scale score 02/12/24 50 mg-300 mg-40 mg capsule 7-10) #6 caps (Fioricet) sulfamethoxazole 800 1 tab PO BID 7 days #14 tabs 05/06/24 mg-trimethoprim 160 mg tablet (Bactrim DS) hydrochlorothiazide 25 mg tablet 25 mg PO DAILY #90 tabs 06/02/24 cyclobenzaprine 10 mg tablet 10 mg PO TID PRN muscle spasm #14 08/24/24 tabs lidocaine 5 % topical patch 1 patch topical DAILY #15 ea 08/24/24 Allergies Allergy/AdvReac Type Severity Reaction Status Date / Time No Known Allergies Allergy Verified 08/24/24 08:45 Review of Systems Review of Systems: As per HPI Yes all other systems are reviewed and are negative Constitutional: Constitutional: Reports as per HPI [facility] Past Medical History Medical History Obesity Hypertension Surgical History [place] teeth extracted History of removal of cyst Family History Family History Father No problems noted. Mother No problems noted. Social History Social History Housing: Apartment Patient Tobacco Use Status: Never used Tobacco e-Cigarette/Vaping Use: Never Used Second Hand Smoke Exposure: No Substance Use Type: Marijuana Advance Directives: No Advance Directives Information Provided: Yes Do you have a plan to hurt others: No Plan service: No Current occupational status: employed Cognitive needs: No Hearing needs: No Vision needs: No Physical Exam ED Vital Signs: Vital Signs - 24 hr 08/24/24 08:42 Temperature 98 F Pulse Rate 65 Respiratory Rate 20 Blood Pressure 163/79 H Pulse Oximetry 98 Oxygen Delivery Method Room Air BMI result Body Mass Index 33.9 Vital signs have been reviewed and appear to be correct. Blood pressure elevated. Heart rate normal. Respiratory rate normal. Temperature normal. Oxygen saturation normal. Const General: cooperative, healthy appearing and no acute distress Orientation/consciousness: oriented to person, oriented to place, oriented to time and patient oriented x3 Limitations: no limitations HENMT Head: Yes normocephalic and Yes atraumatic Ears: external ears normal General nose exam: Normal external nose present Face and sinus: Yes face symmetric Mouth: oropharynx normal and moist mucous membranes Throat: Yes uvula midline Eyes Pupils: Equal, round and reactive pupils present Neck Neck: Yes normal visual inspection and Yes supple Chest Chest palpation & inspection: normal inspection of the chest and tenderness rib right posterior-axillary line involving the 6th rib, involving the 7th rib and involving the 8th rib Resp Effort & Inspection: normal respiratory effort and able to speak in complete sentences Auscultation: clear to auscultation bilaterally Cardio Rate: regular rate Rhythm: regular rhythm Heart sounds: S1 normal heart sound present and S2 normal heart sound present GI Palpation (GI): Soft to palpation and nontender Auscultation: normoactive bowel sounds General: Yes no CVA tenderness Back/Spine/Pelvis Back: no CVA tenderness Skin General skin exam: elasticity normal and turgor normal Neuro General: oriented to person, oriented to place, oriented to time, patient oriented x3, moves all extremities, no focal motor deficits and CN's II-XI intact bilaterally Cranial nerves: Yes Equal, round and reactive pupils present Cognition (Neuro): normal cognition Extrem General: Yes full ROM, Yes no pedal edema and Yes no calf tenderness Psych Mental Status: mental status grossly normal Affect: normal affect Thought process: Normal thought process present Medical Decision Making Medical Decision Making [facility] Narrative: Patient is a 43-year-old male with history of HTN presenting to the emergency department with complaint of right sided rib/flank pain. On exam patient is awake, A+Ox3, BP elevated, VS otherwise WNL, afebrile, normal neurological exam without focal deficits, physical exam findings as above. Given reported symptoms and physical exam findings, initial differential includes costochondritis, muscle strain, pneumonia, rib fracture. Labs unremarkable. Urinalysis is without evidence of infection, no blood noted. Unlikely renal colic/calculi. X-ray notable for no evidence of rib fracture or pneumonia. My interpretation is in agreement with the radiologist's interpretation. Based on physical exam findings, symptoms most consistent with muscle strain. Results discussed with patient all questions answered. Will send prescription for muscle relaxers as well as topical lidocaine patches, advised Tylenol ibuprofen. Follow up with PCP. Return precautions discussed. Patient verbalized understanding of and agreement with plan. Differential Diagnosis Differential Diagnoses: The differential diagnosis associated with the presentation includes As per [facility] Lab Data [facility] Lab Attestation statement: I reviewed the patient's lab results. As per [facility] 08/24/24 08:55 08/24/24 08:54 Labs: Lab Results 08/24/24 08/24/24 Range/Units 08:54 08:55 WBC 5.9 (4.8-10.8) X10*3/uL RBC 5.29 (4.60-5.80) X10*6/uL Hgb 16.1 (14.0-18.0) g/dl Hct 47.2 (42.0-52.0) % MCV 89.2 (80.0-98.0) fL MCH 30.4 (27.0-33.0) pg MCHC 34.1 (31.0-36.0) g/dl RDW 12.5 (11.0-16.0) % Plt Count 210 (160-400) X10*3/uL MPV 10.5 (9.4-12.4) fL Immature Gran % (Auto) 0.7 H (0.0-0.4) % Neut % (Auto) 58.2 (45-73) % Lymph % (Auto) 30.6 (20-40) % [place] % (Auto) 8.5 (2-11) % Eos % (Auto) 1.7 (0-4) % Baso % (Auto) 0.3 (0-2) % Lymph # (Auto) 1.8 (1.2-4.9) X10*3/uL [place] # (Auto) 0.5 (0.1-1.2) X10*3/uL Eos # (Auto) 0.1 (0.0-0.4) X10*3/uL Baso # (Auto) 0.0 (0.0-0.2) X10*3/uL Abs Immat Gran (auto) 0.04 H (0.00-0.03) X10*3/uL Absolute Neuts (auto) 3.4 (2.0-8.3) x10*3/uL Absolute Nucleated RBC 0.000 (0.0-0.012) X10*3/uL Nucleated RBC % (auto) 0.0 (0.0-0.2) /100WBC Sodium 141 (135-145) mmol/L Potassium 3.9 (3.3-5.1) mmol/L Chloride 104 (96-108) mmol/L Carbon Dioxide 30 H (22-29) mmol/L Anion Gap 11 L (12-20) BUN 13 (9-16) mg/dL Creatinine 0.77 (0.5-1.4) mg/dL Estim Creat Clear Calc 142.4 Estimated GFR > 60 Random Glucose 98 (60-115) mg/dL Calcium 9.4 (8.4-10.2) mg/dL Total Bilirubin 0.3 (0.0-1.0) mg/dL Direct Bilirubin 0.1 (0.0-0.5) mg/dL AST 28 (5-37) U/L ALT 68 H (0-40) U/L Alkaline Phosphatase 99 (39-117) U/L Total Protein 7.3 (6.5-8.0) g/dL Albumin 4.4 (3.5-5.0) g/dL Lipase 50 (8-78) U/L Urine Color Yellow Urine Appearance Clear Urine pH 7.5 (5.0-9.0) Ur Specific [place] 1.015 (1.005-1.025) Urine Protein Negative (Neg-Trace) mg/dL Urine Glucose (UA) Negative (Negative) mg/dL Urine Ketones Negative (Negative) mg/dL Urine Blood Negative (Negative) Urine Nitrite Negative (Negative) Ur Leukocyte Esterase Negative (Negative) Independent Interpretation I performed an independent interpretation of an: Plain X-Ray Interpretation: No evidence of rib fracture, pneumonia on x-ray. Radiology Impression Discussion of test interpretation with radiology: I have reviewed the radiologist's reading. Radiologist Impression: XR/XR ribs RT min 3V w CXR1V IMPRESSION: No displaced fracture. External Record Review External record reviewed: Inpatient record, Office record and Outpatient record Prescription Management I considered prescription management with: Pain Medication and Other Discharge Plan Discharge Clinical Impression: Muscle strain Patient Disposition: Home, Self-Care Instructions: Muscle Strain (DC) Additional Instructions: You were evaluated in the emergency department today for back pain. Your x-ray did not show evidence pneumonia or rib fracture. Your pain is likely due to a muscle strain from coughing. You are being sent prescriptions for a muscle relaxer as well as topical lidocaine patches. You can wear the lidocaine patches for up to 12 hours in a 24 hour period. Do not apply heat directly over the patches. We also recommend that you take 600 mg of ibuprofen or 650 mg of Tylenol every 6 hours as needed for pain. If necessary, you can alternate these medications every 3 hours. For example, at 9:00 a.m. take Tylenol, then at noon take ibuprofen, then at 3:00 p.m. take Tylenol, etc.. Follow-up with your primary care provider. Return to the emergency department with new or concerning symptoms. Prescriptions: New cyclobenzaprine 10 mg tablet 10 mg PO TID PRN (Reason: muscle spasm) Qty: 14 0RF lidocaine 5 % adhesive patch,medicated 1 patch topical DAILY Qty: 15 0RF Rx Instructions: leave on most painful area for up to 12 hrs No Action cholecalciferol (vitamin D3) 50 mcg (2,000 unit) tablet 50 mcg PO DAILY Qty: 90 8RF hydrochlorothiazide 25 mg tablet 25 mg PO DAILY Qty: 90 8RF qsqtdlntqo-moqeiahubyvfa-inbx [Fioricet] 50-300-40 mg capsule 1 cap PO Q8H PRN (Reason: pain (scale score 7-10)) Qty: 6 0RF doxycycline hyclate 50 mg capsule 50 mg PO DAILY Qty: 30 8RF sulfamethoxazole-trimethoprim [Bactrim DS] 800-160 mg tablet 1 tab PO BID 7 Days Qty: 14 0RF Print Language: Upper Sorbian
[2024-08-24 09:15] LABS: Alanine Aminotransferase 68 U/L (0-40); Albumin Level 4.4 g/dL (3.5-5.0); Alkaline Phosphatase 99 U/L (39-117); Anion Gap 11 (12-20); Aspartate Amino Transferase 28 U/L (5-37); Bilirubin Direct 0.1 mg/dL (0.0-0.5); Bilirubin Total 0.3 mg/dL (0.0-1.0); Blood Urea Nitrogen 13 mg/dL (9-16); Calcium 9.4 mg/dL (8.4-10.2); Carbon Dioxide 30 mmol/L (22-29); Chloride 104 mmol/L (96-108); Creatinine Clr Calc Pharmacy 142.4; Estimated Glomerular Filt Rate > 60; Glucose Random 98 mg/dL (60-115); Lipase 50 U/L (8-78); Potassium 3.9 mmol/L (3.3-5.1); Sodium 141 mmol/L (135-145); Total Protein 7.3 g/dL (6.5-8.0)
[2024-08-24 10:52] VITALS: BP 163/79; PULSE 65; RESP 20; TEMP 36.6; O2SAT 98
== END 2024-08-24 10:53 | disposition home or self-care (01) ==
PROVIDERS: Emergency Provider Emergency Medicine; PCP Internal Medicine
DX: R07.81 Pleurodynia (principal); R10.2 Pelvic and perineal pain; Z79.899 Other long term (current) drug therapy
CPT/HCPCS: 36415; 71101; 80048; 80076; 81003; 83690; 85025; 99282; 99283

== ENCOUNTER 2024-08-28 07:26 | Outpatient (AMB) | payer BC, SELFPAY ==
--- NOTE | 2024-08-28 07:31 | MHC.PC.OV ---
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: No Accompanied by: Self / Same As Patient Allergies No Known Allergies Allergy (Verified 08/28/24 07:43) Medication List - Last Reconciled 08/28/24 by Sana Mathur MD cholecalciferol (vitamin D3) 50 mcg PO DAILY cyclobenzaprine 10 mg PO TID PRN hydrochlorothiazide 25 mg PO DAILY Tobacco use date assessed: 12/20/23 Dental Screening Dental Screen Date: 08/28/24 Did you have a dental visit in the last 12 months?: No Did you have a dental problem in the last 6 months where you did not have access to dental care?: No Was dental information given to patient?: Patient has dentist HPI HPI Comments History of Present Illness Details The patient is a 43-year-old male presenting with muscle pain and rash for his physical exam. The muscle pain has been managed with cyclobenzaprine, 10 mg three times daily as needed, which he reports experiencing primarily in the ribs. A recent hospital visit included an X-ray, which showed no rib fractures. Cyclobenzaprine and ibuprofen provide some relief. There is a history of mild depression, potentially exacerbated by the recent passing of his mother in December due to complications from diabetes. Additionally, the patient has a recurring rash on the chest similar to previous MRSA-related rashes, suspected to be Jessica Intertrigo but requires further evaluation. The patient reports a history of a pilonidal cyst removal in 2015 and wisdom teeth extraction. He takes hydrochlorothiazide, 25 mg daily, for hypertension, and vitamin D 50 mcg daily for deficiency. No allergies to medications are reported. - Blood sugar level previously recorded as excellent (98). - Vitamin D level monitoring planned. - Discussion about the need for the Tdap vaccination since the last was in 2010. [facility] Medical History Obesity Hypertension Surgical History [place] teeth extracted History of removal of cyst Family History (Updated 08/28/24 @ 07:51 by Sana Mathur MD) Father No problems noted. Mother Diabetes mellitus, Onset Age: 58 Social History (Updated 08/28/24 @ 07:51 by Sana Mathur MD) Housing: Apartment Alcohol intake: current Alcohol intake frequency: a few times a month Alcohol type: beer Patient Tobacco Use Status: Never used Tobacco e-Cigarette/Vaping Use: Never Used Second Hand Smoke Exposure: No Substance Use Type: Marijuana service: No Current occupational status: employed Current occupational exposures/hazards: No Cognitive needs: No Hearing needs: No Vision needs: No Questionnaire PHQ-9 Over the last 2 weeks, how often have you been bothered by any of the following problems? 1. Little interest or pleasure in doing things: several days 2. Feeling down, depressed, or hopeless: not at all 3. Trouble falling or staying asleep, or sleeping too much: several days 4. Feeling tired or having little energy: not at all 5. Poor appetite or overeating: several days 6. Feeling bad about yourself - or that you are a failure or have let yourself or your family down: several days 7. Trouble concentrating on things, such as reading the newspaper or watching television: several days 8. Moving or speaking so slowly that other people could have noticed. Or the opposite - being so fidgety or restless that you have been moving around a lot more than usual: not at all 9. Thoughts that you would be better off or of hurting yourself in some way: not at all Total score: 5 Depression Screening Interpretation: Positive Depression Screening Follow-up: Existing condition, Follow-up Visit Requested and Declines treatment Depression Screening Done: Yes 33599 - PHQ-9 Billing: Yes Source: Developed by Drs. Junior Edouard, Kelly Goodwin, Papa Lamb and colleagues, with an educational trinity from [employer]. Thrive Questionnaire Date Thrive assessed: 08/28/24 I am a: Patient What is your living situation today?: I choose not to answer this question Within the past 12 months, did the food you bought not last and you didn't have the money to get more?: Often true Within the past 12 months, did you worry whether your food would run out before you got money to buy more?: Often true Do you have trouble paying for medicines?: Yes Do you have trouble getting transportation to medical appointments?: No Do you have trouble paying your heating and electricity bill?: No Do you have trouble taking care of your child, family member or friend?: No Do you have trouble with day-to-day activities such as bathing, preparing meals, shopping, managing finances, etc.?: No Are you currently unemployed and looking for a job?: No Are you interested in more education?: No Please select the resources that you would like help with: Paying for medicine and None Currently or been in a relationship where the following occur: I choose not to answer THRIVE Score: 2 AUDIT C Alcohol Use Questionnaire (AUDIT-C) 1. How often do you have a drink containing alcohol?: 2-4 times a month 2. How many drinks containing alcohol do you have on a typical day when you are drinking?: 3 or 4 3. How often do you have six or more drinks on one occasion?: Never Total Score: 3 Score Reviewed/Action Taken: No ERLINDA-7 AMB Questionnaire ERLINDA-7 Date ERLINDA - 7 assessed: 08/28/24 Feeling nervous, anxious, or on edge: 0 = Not at all Not being able to stop or control worryin = Not at all Worrying too much about different things: 0 = Not at all Trouble relaxin = Not at all Being so restless that it is hard to sit still: 0 = Not at all Becoming easily annoyed or irritable: 0 = Not at all Feeling afraid as if something awful might happen: 0 = Not at all Total ERLINDA-7 score (0-4 normal; 5-9 mild; 10-14 moderate; 15-21 severe): 0 Source: Developed by Drs. Junior Edouard, Kelly Goodwin, Papa Lamb and colleagues, with an educational trinity from [employer]. ERLINDA-7 Assessment Billing ERLINDA-7 Assessment Tool: ERLINDA-7 Assessment 99993 Review of Systems Const All systems reviewed & are unremarkable except as noted in HPI and below Card Denies chest pain at rest, Denies chest pain with activity, Denies edema, Denies irregular heart rhythm, Denies claudication, Denies dyspnea, Denies dyspnea on exertion, Denies orthopnea, Denies paroxysmal nocturnal dyspnea and Denies slow heart rate Resp Denies cough, Denies dyspnea and Denies dyspnea on exertion GI Denies abdominal pain, Denies change in bowel habits, Denies excessive flatus, Denies nausea and Denies vomiting Denies urinary hesitancy, Denies urinary incontinence and Denies urinary urgency Musc Denies abnormal gait, Reports back pain, Denies atrophy, Denies deformity, Denies limited range of motion and Reports muscle cramps Skin/Breast Denies bleeding lesions, Denies changing lesions and Denies rash Neuro Denies abnormal gait, Denies behavioral changes and Denies lack of coordination Psych Denies behavioral changes Physical exam (Primary Care) Vital Signs: Last Vital Signs BP 138/88 08/28/24 08:03 BMI result Body Mass Index 33.9 BMI Assessment/Plan discussion: High BMI High, discussed plan: lifestyle, weight reduction, dietary and physical activity Tobacco/Smoking Status: Tobacco use Status Tobacco use date assessed 12/20/23 08/28/24 07:38 Patient Tobacco Use Status Never used Tobacco 08/28/24 07:51 e-Cigarette/Vaping Use Never Used 08/28/24 07:51 PHQ-9: PHQ-9 Score PHQ-9: Total score 5 08/28/24 08:07 Depression Screening Interpretation: Positive Depression Screening Follow-up: Existing condition, Follow-up Visit Requested and Declines treatment Thrive Assessment: Date of Thrive Assessment Date Thrive assessed 08/28/24 08/28/24 07:38 Currently or been in a relationship where the following occur: I choose not to answer [facility] Head: Yes normal to inspection, Yes normocephalic and Yes atraumatic Ears: external ears normal Eyes General: appearance normal, both eyes and all related structures Eyelids: Yes eyelids normal Conjunctivae: conjunctivae normal Neck Neck: Yes normal visual inspection and Yes supple Resp Effort & Inspection: normal respiratory effort Auscultation: clear to auscultation bilaterally Cardio Jugular venous distension: no JVD Rate: regular rate Rhythm: regular rhythm Heart sounds: S1 normal heart sound present and S2 normal heart sound present GI Inspection: Yes normal to inspection Palpation (GI): Soft to palpation and nontender Auscultation: normal bowel sounds Skin General skin exam: no rashes or lesions noted Neuro General: no focal motor deficits Extrem General: Yes full ROM Psych Appearance: grossly normal Office Procedures Flu Questionnaire Does the patient have a severe egg allergy?: No Immunizations Fluarix Triv [id number] (PF) 45 mcg (15 mcg x 3)/0.5 mL IM syringe Performing Provider: Sana Mathur MD Performing Location: [facility] Documented (not given) by: MARGIE Shaver on 08/28/24 07:41 Reason Not Given: Patient Refused Boostrix Tdap 2.5 Lf unit-8 mcg-5 Lf/0.5 mL intramuscular syringe Performing Provider: Sana Mathur MD Performing Location: [facility] Administered by: MARGIE Shaver on 08/28/24 08:08 Dose Route Admin Location Dispensed Lot Number Expiration Date NDC Ingot Stripper 0.5 mL IM Left Deltoid 0.5 mL [id number] 10/29/26 04326-590-05 [employer] VIS Given Date VIS Provided VIS Publication Date 08/28/24 Single Vaccine 21 Eligibility Eligibility Date Funding Source Not [facility] Eligible 08/28/24 Private Coding Level of Care Code Est Pt Level 3 (71609) Est Pt Prev Care 40-64y(24119) Diagnoses Physical exam Z00.00 Candidal intertrigo B37.2 Acute bilateral thoracic back pain M54.6 Chronicity: acute Back pain laterality: bilateral Additional Codes ERLINDA-7 Assessment Billing - ERLINDA-7 Assessment Tool: ERLINDA-7 Assessment 27506 ([id number]) PHQ-9 - 73452 - PHQ-9 Billing: Yes ([id number]) Time Spent (min) 33 Assessment & Plan Assessment & Plan (1) Physical exam: Code(s): Z00.00 - Encounter for general adult medical examination without abnormal findings Category: Medical (2) Candidal intertrigo: Code(s): B37.2 - Candidiasis of skin and nail Category: Medical (3) Thoracic back pain: Code(s): M54.6 - Pain in thoracic spine Category: Medical Qualifiers: Chronicity: acute Back pain laterality: bilateral Qualified Code(s): M54.6 - Pain in thoracic spine Plan - Essential Hypertension: Continue hydrochlorothiazide 25 mg daily. - Muscle Pain: Cyclobenzaprine for muscle pain with the addition of ibuprofen as needed. Advise nighttime use if drowsiness occurs. - Rash: Prescribe an antifungal cream for suspected Jessica Intertrigo. - Preventative Care: Administer Tdap vaccination. Declined flu vaccination. - Vitamin D Insufficiency: Continue vitamin D supplementation. Patient was informed and verbally consented to the use of an ambient scribe for clinic note documentation during this visit. I discussed with the patient the likely diagnosis of Jessica Intertrigo for the chest rash and the use of antifungal cream for treatment. We talked about the importance of maintaining regular medication adherence for hypertension and vitamin D insufficiency. Given the depression partly related to bereavement, the patient expressed confidence in managing symptoms without counseling. I advised on the potential drowsiness caused by cyclobenzaprine and recommended taking it at night if necessary. The need for updated vaccinations was agreed, with the patient consenting to the Tdap vaccine. Blood work for vitamin D levels and cholesterol screening was ordered, and I recommended conducting tests soon. Orders: Orders Influenza [id number] Immunization Today Z23 - Encounter for immunization Lipid Panel Today E78.5 - Hyperlipidemia, unspecified Vitamin D 25-OH Total Today E55.9 - Vitamin D deficiency, unspecified Comprehensive [place]. Panel Fast Today Z00.00 - Encounter for general adult medical examination without abnormal findings TDaP Immunization Today Z23 - Encounter for immunization Medications: New nystatin 1 appl topical BID 30 grams 0RF 30 days B37.2 - Candidiasis of skin and nail Patient Instructions: - Continue current medications as prescribed. - Use cyclobenzaprine at night if it causes sleepiness. - Apply the prescribed antifungal cream to the rash as directed. - Adhere to scheduled blood work for cholesterol and vitamin D levels. - Return for the Tdap vaccination today, as agreed. - Follow up if symptoms persist or worsen. - Consider counseling if depressive symptoms persist.
[2024-08-28 07:35] VITALS: BP 138/90; BMI 33.9
[2024-08-28 08:03] VITALS: BP 138/88
== END 2024-08-28 08:06 | disposition home or self-care (01) ==
PROVIDERS: PCP Internal Medicine; Visit Provider Internal Medicine
DX: Z00.00 Encounter for general adult medical examination without abnormal findings (principal); B37.2 Candidiasis of skin and nail; M54.6 Pain in thoracic spine

== ENCOUNTER → 2024-08-28 07:26 | Outpatient (BNVA) | payer BC, SELFPAY | PROVIDERS: PCP Internal Medicine; Visit Provider Internal Medicine | DX: Z00.01 Encounter for general adult medical examination with abnormal findings (principal); Z23 Encounter for immunization; B37.2 Candidiasis of skin and nail; M54.6 Pain in thoracic spine; I10 Essential (primary) hypertension; Z79.899 Other long term (current) drug therapy | CPT/HCPCS: 90471; 90715; 96127 ==

== ENCOUNTER 2025-01-13 08:06 | Outpatient (AMB) | payer OTHER, BC, SELFPAY ==
[2025-01-13 08:06] VITALS: BP 151/100; PULSE 79; O2SAT 98
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
== END 2025-01-13 08:31 | disposition home or self-care (01) ==
PROVIDERS: PCP Internal Medicine; Visit Provider Physician Assistant
DX: S29.012A Strain of muscle and tendon of back wall of thorax, initial encounter (principal)

== ENCOUNTER → 2025-01-13 08:06 | Outpatient (BNVA) | payer OTHER, BC, SELFPAY | PROVIDERS: PCP Internal Medicine; Visit Provider Physician Assistant ==

== ENCOUNTER 2025-01-15 09:21 | Emergency (ER) | payer OTHER, BC, SELFPAY ==
[2025-01-15 09:25] VITALS: BP 191/87; PULSE 76; RESP 18; TEMP 36.1; O2SAT 99; BMI 34.8
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
[2025-01-15] MEDS: Lidocaine 4 % Patch ADH..PATCH 1 PATCH TRANSDERMA (11:11)
[2025-01-15] MEDS: Ketorolac Tromethamine 30 MG/ML VIAL IM (11:11)
[2025-01-15 11:28] VITALS: BP 191/87; PULSE 76; RESP 18; TEMP 36.1; O2SAT 99
== END 2025-01-15 11:29 | disposition home or self-care (01) ==
PROVIDERS: Emergency Provider Emergency Medicine; PCP Internal Medicine
DX: Z04.1 Encounter for examination and observation following transport accident (principal); M54.6 Pain in thoracic spine
CPT/HCPCS: 96372; 99283; 99284; J1885

== ENCOUNTER 2025-02-25 08:12 | Outpatient (AMB) | payer BC, SELFPAY ==
--- NOTE | 2025-02-25 08:16 | MHC.PC.OV ---
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 Accompanied by: Self / Same As Patient Allergies No Known Allergies Allergy (Verified 02/25/25 08:23) Medication List - Last Reviewed 02/25/25 by MARGIE Shaevr hydrochlorothiazide 25 mg PO DAILY Tobacco use date assessed: 02/25/25 Dental Screening Dental Screen Date: 02/25/25 Did you have a dental visit in the last 12 months?: No Did you have a dental problem in the last 6 months where you did not have access to dental care?: No Was dental information given to patient?: Patient has dentist HPI HPI Comments History of Present Illness Details The patient is a 44-year-old male presenting for a medication refill and management of a recurrent rash identified as folliculitis. The rash, characterized by itchiness, primarily occurs in areas of denser hair growth, such as the back, which worsens in warm weather. Previously, this condition responded well to amoxicillin when prescribed by a respiratory supervisor a couple of years ago. The patient does not report any chest pain or shortness of breath, indicative of no immediate cardiovascular concerns. His past medical history includes essential hypertension and vitamin D deficiency. The patient's lifestyle includes working at a stressful job, which has raised concerns about affecting his blood pressure control. Blood pressure elevated and he did took his hydrochlorothiazide. I will start him on losartan 50 mg and blood pressure will be recheck in 3 weeks by nurse navigator. No chest pain or shortness on breath. He is also obese with a BMI of 34.4 and was advised to diet and exercise to reach BMI goal less than 30. [facility] Medical History (Updated 02/25/25 @ 08:37 by Sana Mathur MD) Obesity Hypertension Surgical History [place] teeth extracted History of removal of cyst Family History Father No problems noted. Mother Diabetes mellitus, Onset Age: 58 Social History Housing: Apartment Alcohol intake: current Alcohol intake frequency: a few times a month Alcohol type: beer Patient Tobacco Use Status: Never used Tobacco e-Cigarette/Vaping Use: Never Used Second Hand Smoke Exposure: No Substance Use Type: Marijuana service: No Current occupational status: employed Current occupational exposures/hazards: No Cognitive needs: No Hearing needs: No Vision needs: No Questionnaire PHQ-9 Over the last 2 weeks, how often have you been bothered by any of the following problems? 1. Little interest or pleasure in doing things: not at all 2. Feeling down, depressed, or hopeless: not at all 3. Trouble falling or staying asleep, or sleeping too much: not at all 4. Feeling tired or having little energy: not at all 5. Poor appetite or overeating: not at all 6. Feeling bad about yourself - or that you are a failure or have let yourself or your family down: not at all 7. Trouble concentrating on things, such as reading the newspaper or watching television: not at all 8. Moving or speaking so slowly that other people could have noticed. Or the opposite - being so fidgety or restless that you have been moving around a lot more than usual: not at all 9. Thoughts that you would be better off or of hurting yourself in some way: not at all Total score: 0 Depression Screening Interpretation: Negative Depression Screening Done: Yes 88882 - PHQ-9 Billing: Yes Source: Developed by Drs. Junior Edouard, Kelly Goodwin, Papa Lamb and colleagues, with an educational trinity from [employer]. Thrive Questionnaire Date Thrive assessed: 02/23/25 I am a: Patient What is your living situation today?: I have a steady place to live Within the past 12 months, did the food you bought not last and you didn't have the money to get more?: I choose not to answer this question Within the past 12 months, did you worry whether your food would run out before you got money to buy more?: I choose not to answer this question Do you have trouble paying for medicines?: No Do you have trouble getting transportation to medical appointments?: No Do you have trouble paying your heating and electricity bill?: No Do you have trouble taking care of your child, family member or friend?: No Do you have trouble with day-to-day activities such as bathing, preparing meals, shopping, managing finances, etc.?: No Are you currently unemployed and looking for a job?: No Are you interested in more education?: No Please select the resources that you would like help with: None Currently or been in a relationship where the following occur: I choose not to answer THRIVE Score: 0 AUDIT C Alcohol Use Questionnaire (AUDIT-C) 1. How often do you have a drink containing alcohol?: Monthly or less 2. How many drinks containing alcohol do you have on a typical day when you are drinking?: 1 or 2 3. How often do you have six or more drinks on one occasion?: Never Total Score: 1 Score Reviewed/Action Taken: No ERLINDA-7 AMB Questionnaire ERLINDA-7 Date ERLINDA - 7 assessed: 02/25/25 Feeling nervous, anxious, or on edge: 0 = Not at all Not being able to stop or control worryin = Not at all Worrying too much about different things: 0 = Not at all Trouble relaxin = Not at all Being so restless that it is hard to sit still: 0 = Not at all Becoming easily annoyed or irritable: 0 = Not at all Feeling afraid as if something awful might happen: 0 = Not at all Total ERLINDA-7 score (0-4 normal; 5-9 mild; 10-14 moderate; 15-21 severe): 0 Source: Developed by Drs. Junior Edouard, Kelly Goodwin, Papa Lamb and colleagues, with an educational trinity from [employer]. ERLINDA-7 Assessment Billing ERLINDA-7 Assessment Tool: ERLINDA-7 Assessment 08116 Review of Systems Const All systems reviewed & are unremarkable except as noted in HPI and below Card Denies chest pain at rest, Denies chest pain with activity, Denies edema, Denies irregular heart rhythm, Denies claudication, Denies dyspnea, Denies dyspnea on exertion, Denies orthopnea, Denies paroxysmal nocturnal dyspnea and Denies slow heart rate Resp Denies cough, Denies dyspnea and Denies dyspnea on exertion Physical exam (Primary Care) Vital Signs: Last Vital Signs BP 172/116 H 02/25/25 08:18 BMI result Body Mass Index 34.4 BMI Assessment/Plan discussion: High BMI High, discussed plan: lifestyle, weight reduction, dietary and physical activity Tobacco/Smoking Status: Tobacco use Status Tobacco use date assessed 12/20/23 08/28/24 07:38 Patient Tobacco Use Status Never used Tobacco 01/13/25 08:07 e-Cigarette/Vaping Use Never Used 08/28/24 07:51 Depression Screening Interpretation: Negative Thrive Assessment: Date of Thrive Assessment Date Thrive assessed 02/23/25 02/23/25 12:25 Currently or been in a relationship where the following occur: I choose not to answer Resp Effort & Inspection: normal respiratory effort Auscultation: clear to auscultation bilaterally Cardio Jugular venous distension: no JVD Rate: regular rate Rhythm: regular rhythm Heart sounds: S1 normal heart sound present and S2 normal heart sound present Extrem General: Yes full ROM Coding Level of Care Code Est Pt Level 4 (56960) Complex EM visit Add On G2211 Diagnoses Folliculitis L73.9 Essential hypertension I10 Hypovitaminosis D E55.9 Class 1 obesity due to excess calories without serious comorbidity with body mass index (BMI) of 34.0 to 34.9 in adult E66.811; E66.09; Z68.34 Obesity type: due to excess calories Obesity classification: adult class 1 (BMI 30 - 34.9) Serious obesity comorbidity presence: without serious comorbidity Body mass index: BMI 34.0-34.9 Additional Codes PHQ-9 - 88337 - PHQ-9 Billing: Yes ([id number]) ERLINDA-7 Assessment Billing - ERLINDA-7 Assessment Tool: ERLINDA-7 Assessment 75480 ([id number]) Time Spent (min) 23 Assessment & Plan Assessment & Plan (1) Folliculitis: Code(s): L73.9 - Follicular disorder, unspecified Category: Medical (2) Essential hypertension: Code(s): I10 - Essential (primary) hypertension Category: Medical (3) Hypovitaminosis D: Code(s): E55.9 - Vitamin D deficiency, unspecified Category: Medical (4) Obesity: Code(s): E66.9 - Obesity, unspecified Category: Medical Qualifiers: Obesity type: due to excess calories Obesity classification: adult class 1 (BMI 30 - 34.9) Serious obesity comorbidity presence: without serious comorbidity Body mass index: BMI 34.0-34.9 Qualified Code(s): E66.811 - Obesity, class 1; E66.09 - Other obesity due to excess calories; Z68.34 - Body mass index [BMI] 34.0-34.9, adult Plan The treatment plan involves prescribing amoxicillin to address the recurrent bacterial dermatitis effectively. The patient's vitamin D deficiency will continue to be managed with vitamin D supplementation. Due to essential hypertension, an additional blood pressure medication has been prescribed, and the patient has been advised on the importance of adherence to prevent severe complications. A follow-up appointment is set in three weeks to evaluate blood pressure management. The patient is scheduled for blood work in August for further assessment. Patient was informed and verbally consented to the use of an ambient scribe for clinic note documentation during this visit. I discussed with the patient that amoxicillin is an effective treatment for his recurrent rash based on prior experience. The importance of managing essential hypertension to avoid cardiovascular risks, such as heart attacks and strokes, was also reviewed. We discussed adding a second antihypertensive medication, and the patient understood the benefits and necessity of this intervention. I reinforced the need for follow-up visits to monitor blood pressure control and emphasized the importance of the scheduled appointment for blood work before his next physical examination. The management of vitamin D deficiency with ongoing supplementation was also communicated. Orders: Orders Comprehensive [place]. Panel Fast 6 Months I10 - Essential (primary) hypertension Vitamin D 25-OH Total 6 Months E55.9 - Vitamin D deficiency, unspecified Lipid Panel 6 Months I10 - Essential (primary) hypertension Medications: New losartan 50 mg PO DAILY 90 days 90 tabs 1RF I10 - Essential (primary) hypertension cholecalciferol (vitamin D3) 25 mcg PO DAILY 90 days 90 caps 1RF E55.9 - Vitamin D deficiency, unspecified amoxicillin 500 mg PO Q8H 7 days 21 caps 0RF L73.9 - Follicular disorder, unspecified Patient Instructions: - Take the prescribed amoxicillin as directed for the rash. - Continue current vitamin D supplementation. - Take both blood pressure medications in the morning as prescribed. - Monitor and record blood pressure regularly. - Attend follow-up appointment in three weeks for blood pressure evaluation. - Complete ordered blood work prior to August physical exam. - Contact the clinic if the rash worsens or additional symptoms develop.
[2025-02-25 08:18] VITALS: BP 172/116; BMI 34.4
== END 2025-02-25 08:33 | disposition home or self-care (01) ==
PROVIDERS: PCP Internal Medicine; Visit Provider Internal Medicine
DX: L73.9 Follicular disorder, unspecified (principal); I10 Essential (primary) hypertension; E55.9 Vitamin D deficiency, unspecified; E66.811 Obesity, class 1; E66.09 Other obesity due to excess calories; Z68.34 Body mass index [BMI] 34.0-34.9, adult

== ENCOUNTER → 2025-02-25 08:12 | Outpatient (BNVA) | payer OTHER, BC, SELFPAY | PROVIDERS: PCP Internal Medicine; Visit Provider Internal Medicine | DX: L30.8 Other specified dermatitis (principal); B96.89 Other specified bacterial agents as the cause of diseases classified elsewhere; I10 Essential (primary) hypertension; E55.9 Vitamin D deficiency, unspecified; E66.811 Obesity, class 1; E66.09 Other obesity due to excess calories; Z68.34 Body mass index [BMI] 34.0-34.9, adult | CPT/HCPCS: 96127 ==

== ENCOUNTER 2025-06-23 09:08 | Outpatient (AMB) | payer BC, SELFPAY ==
[2025-06-23 09:16] VITALS: BP 142/80; PULSE 75; TEMP 36.7; O2SAT 97; BMI 34.1
--- NOTE | 2025-06-23 09:16 | MHC.OFFWIV ---
Intake Vital Signs 06/23/25 09:16 Height 5 ft 8 in Weight 224 lb BMI 34.1 BP 142/80 H Blood Pressure Location Rt brachial Position Sitting Pulse 75 Pulse Source Pulse Oximeter Temp 98.1 F Temp Source Oral Pulse Oximetry (%) 97 Oxygen Delivery Method Room Air Intake Visit Reasons: ep siactic pain left side Intake Note: pt presents with LT back pain radiating down to toes x5 days Patient Tobacco Use Status: Never used Tobacco Allergies No Known Allergies Allergy (Verified 06/23/25 09:17) Do you need a note to return to daycare/school/sports/work: Yes HPI HPI Comments History of Present Illness Details History - The patient is a 44-year-old male presenting with low back pain and pain down his left leg. - The sciatic pain began 5 days ago, starting in the lower back on the left side and extending down the left leg. - The patient denies any previous episodes of similar pain. 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 - The pain is characterized as sharp and shooting, without any associated weakness or loss of strength in the leg. - There is no reported loss of bladder or bowel control. - Did not try any other treatments. Physical Exam General: Cooperative, healthy appearing, comfortable, no acute distress and well developed Orientation: Patient oriented x3 Limitations: No limitations Head: Normal to inspection Ears: Hearing grossly normal bilaterally Nose: Normal External nose present Face and sinus: Normal facial exam Mouth: normal, moist oral mucosa Eyes: Appearance normal, both eyes and all related structures Neck: Normal visual inspection and Yes full ROM Respiratory: Normal respiratory effort and able to speak in complete sentences. Skin: no rashes or lesions noted Neuro: Patient oriented x3 Extremities: moving all extremities normally, + straight leg on left side [facility] Medical History Obesity Hypertension Surgical History [place] teeth extracted History of removal of cyst Family History Father No problems noted. Mother Diabetes mellitus, Onset Age: 58 Social History Housing: Apartment Alcohol intake: current Alcohol intake frequency: a few times a month Alcohol type: beer Patient Tobacco Use Status: Never used Tobacco e-Cigarette/Vaping Use: Never Used Second Hand Smoke Exposure: No Substance Use Type: Marijuana service: No Current occupational status: employed Current occupational exposures/hazards: No Cognitive needs: No Hearing needs: No Vision needs: No Review of Systems Const All systems reviewed & are unremarkable except as noted in HPI and below Physical Exam Vital Signs: Last Vital Signs Temp 98.1 F 06/23/25 09:16 Pulse 75 06/23/25 09:16 BP 142/80 H 06/23/25 09:16 Pulse Ox 97 06/23/25 09:16 Oxygen Delivery Method Room Air 06/23/25 09:16 BMI result Body Mass Index 34.1 Assessment & Plan Assessment & Plan (1) Acute low back pain with left-sided sciatica: Code(s): M54.42 - Lumbago with sciatica, left side Qualifiers: Back pain laterality: left Qualified Code(s): M54.42 - Lumbago with sciatica, left side Plan: Plan Patient was informed and verbally consented to the use of an ambient scribe for clinic note documentation during this visit - Initiate treatment with prednisone 50 mg daily for 3 days to reduce inflammation. - Advise once prednisone course is complete, can use Aleve, ice, and rest to manage symptoms. - Recommend physical therapy if symptoms persist after initial treatment. Medications: New prednisone 50 mg PO QAM 5 tabs 0RF Coding Level of Care Code Est Pt Level 3 (60731) Diagnoses Acute left-sided low back pain with left-sided sciatica M54.42 Back pain laterality: left
== END 2025-06-23 09:36 | disposition home or self-care (01) ==
PROVIDERS: PCP Internal Medicine; Visit Provider Physician Assistant
DX: M54.42 Lumbago with sciatica, left side (principal)

== ENCOUNTER 2025-07-17 09:29 | Outpatient (AMB) | payer BC, SELFPAY ==
--- NOTE | 2025-07-17 09:30 | MHC.OFFWIV ---
Intake Vital Signs 07/17/25 09:31 Height 5 ft 8 in Weight 227 lb BMI 34.5 BP 150/82 H Blood Pressure Location Lt brachial Position Sitting Pulse 78 Pulse Source Pulse Oximeter Temp 98.3 F Temp Source Oral Pulse Oximetry (%) 98 Oxygen Delivery Method Room Air Intake Visit Reasons: ep cyst/boil on back of neck Patient Tobacco Use Status: Never used Tobacco Allergies No Known Allergies Allergy (Verified 07/17/25 09:34) Do you need a note to return to daycare/school/sports/work: No HPI HPI Comments History of Present Illness Details This is a 44-year-old male who presented to the walk-in clinic complaining of a cyst to the back of his neck. Patient states he first noticed the cyst several days ago after getting his haircut at the [employer]. He states he has had a similar issue in the past after a haircut and required antibiotics for + MRSA at that time. He states it started as a small bump but has since grown in size and has become increasingly more painful and erythematous. He reports chills but denies any measured fevers. He hasn't noticed any significant purulent drainage. [facility] Medical History Obesity Hypertension Surgical History [place] teeth extracted History of removal of cyst Family History Father No problems noted. Mother Diabetes mellitus, Onset Age: 58 Social History Housing: Apartment Alcohol intake: current Alcohol intake frequency: a few times a month Alcohol type: beer Patient Tobacco Use Status: Never used Tobacco e-Cigarette/Vaping Use: Never Used Second Hand Smoke Exposure: No Substance Use Type: Marijuana service: No Current occupational status: employed Current occupational exposures/hazards: No Cognitive needs: No Hearing needs: No Vision needs: No Review of Systems Const All systems reviewed & are unremarkable except as noted in HPI and below Reports no additional complaints Eyes Reports no additional complaints ENT Reports no additional complaints Card Reports no additional complaints Resp Reports no additional complaints GI Reports no additional complaints Reports no additional complaints Musc Reports no additional complaints Skin/Breast Reports system reviewed and no additional complaints, except as documented Neuro Reports no additional complaints Psych Reports no additional complaints Endo Reports no additional complaints Jemal/Lymph Reports no additional complaints Aller/Immun Reports no additional complaints Physical Exam Exam Exam: Vital signs reviewed. Constitutional: Non-toxic appearing. No acute distress. Well-developed and well-nourished. HEENT: Normocephalic and atraumatic. Skin: There is an approximately 3 cm area of erythema and induration with minimal overlying crusting without any active purulent drainage to the nape of the neck at the hairline. Neck: Full and painless range of motion. No cervical lymphadenopathy. Cardio: Regular rate. No lower extremity edema. Pulmonary: No respiratory distress. No accessory muscle usage. Musculoskeletal: No deformity or other signs of injury. Neuro: Alert and oriented x4. Cranial nerves 2-12 grossly intact. No focal deficits appreciated. Psych: Normal mood and affect. Vital Signs: Last Vital Signs Temp 98.3 F 07/17/25 09:31 Pulse 78 07/17/25 09:31 BP 150/82 H 07/17/25 09:31 Pulse Ox 98 07/17/25 09:31 Oxygen Delivery Method Room Air 07/17/25 09:31 BMI result Body Mass Index 34.5 Assessment & Plan Assessment & Plan (1) Cellulitis of neck: Code(s): L03.221 - Cellulitis of neck Plan: 44-year-old male who presented to the walk-in clinic complaining of a cyst to the back of his neck x 3-4 days. On physical examination, there is a 3 cm area of induration and erythema with minimal crusting to the nape of the neck at the hairline. There are no areas of fluctuance that would warrant incision and drainage at this time. History and physical most consistent with cellulitis of the neck, likely in the setting of folliculitis due to recent haircut. Patient was given a prescription for PO trimethoprim/sulfamethoxazole twice daily x7 days given history of MRSA. He was advised to apply warm compresses to the area. He was advised to proceed directly to the emergency room if he were to develop worsening/spreading erythema, fever/chills, or significant purulent drainage. Patient verbalized understanding and he is in agreement with the plan. Medications: New sulfamethoxazole-trimethoprim 800-160 mg 1 tab PO BID 14 tabs 0RF Coding Level of Care Code Est Pt Level 3 (95391) Diagnoses Cellulitis of neck L03.221
[2025-07-17 09:31] VITALS: BP 150/82; PULSE 78; TEMP 36.8; O2SAT 98; BMI 34.5
== END 2025-07-17 10:28 | disposition home or self-care (01) ==
PROVIDERS: PCP Internal Medicine; Visit Provider Physician Assistant Medical
DX: L03.221 Cellulitis of neck (principal)

== ENCOUNTER 2025-09-01 07:25 | Outpatient (REF) | payer BC, SELFPAY ==
[2025-09-01 08:15] LABS: MANUAL DIFF FLAG NO
[2025-09-01 08:44] LABS: Hematocrit 46.7 % (42.0-52.0); Hemoglobin 15.5 g/dl (14.0-18.0); Imm Gran Abs Auto 0.04 X10*3/uL (0.00-0.03); Imm Gran Pct Auto 0.6 % (0.0-0.4); Lymphocytes Absolute Auto 1.6 X10*3/uL (1.2-4.9); Mean Corpuscular HGB Conc 33.2 g/dl (31.0-36.0); Mean Corpuscular Hemoglobin 30.0 pg (27.0-33.0); Mean Corpuscular Volume 90.5 fL (80.0-98.0); NRBC Abs Auto 0.000 X10*3/uL (0.0-0.012); NRBC Pct Auto 0.0 /100WBC (0.0-0.2); Platelet Count 252 X10*3/uL (160-400); Red Blood Count 5.16 X10*6/uL (4.60-5.80); White Blood Count 6.2 X10*3/uL (4.8-10.8)
[2025-09-01 09:32] LABS: Alanine Aminotransferase 37 U/L (0-40); Albumin Level 4.5 g/dL (3.5-5.0); Alkaline Phosphatase 86 U/L (39-117); Anion Gap 10 (12-20); Aspartate Amino Transferase 26 U/L (5-37); Blood Urea Nitrogen 14 mg/dL (9-16); Calcium 9.6 mg/dL (8.4-10.2); Carbon Dioxide 30 mmol/L (22-29); Chloride 103 mmol/L (96-108); Cholesterol 177 mg/dL (<200); Estimated Glomerular Filt Rate > 60; HDL Cholesterol 47 mg/dL (>40); Iron 94 mcg/dL (45-160); Percent Iron Saturation 32 % (15-50); Potassium 3.9 mmol/L (3.3-5.1); Sodium 139 mmol/L (135-145); Total Iron Binding Capacity 296 mcg/dL (228-428); Total Protein 7.3 g/dL (6.5-8.0); Triglycerides 136 mg/dL (<150); Unsaturated Iron Binding 202 ug/dL
[2025-09-01 09:42] LABS: HBS Num1 3.75 mIU/mL (0-7.99); HBc Num1 0.04 S/CO (0.00-0.79); HBsAGNum1 0.30 S/CO (0.00-0.99); HIV Num 1 0.13 S/CO (0.00-0.99); Hepatitis A Antibody IgM 0.17 Index (0-0.79); Hepatitis B Surface Antigen Negative (Negative); ~HepC Num1 0.12 S/CO (0.00-0.79); ~Hepatitis A Antibody IgM Nonreactive (Nonreactive); ~Hepatitis B Surface Antibody NONREACTIVE (Nonreactive); ~Hepatitis C Antibody Nonreactive (Nonreactive)
[2025-09-01 09:55] LABS: Thyroid Stimulating Hormone 1.84 uIU/mL (0.32-4.0)
[2025-09-01 10:21] LABS: Folate 8.5 ng/mL (> or = 4.0); Vitamin B12 351 pg/mL (200-900)
== END 2025-09-01 07:26 | disposition home or self-care (01) ==
LOC: HO.LAB 07:25
PROVIDERS: PCP Internal Medicine; Visit Provider Internal Medicine
DX: Z11.4 Encounter for screening for human immunodeficiency virus [HIV] (principal); Z00.00 Encounter for general adult medical examination without abnormal findings; D64.9 Anemia, unspecified; E78.5 Hyperlipidemia, unspecified; E53.8 Deficiency of other specified B group vitamins; R74.01 Elevation of levels of liver transaminase levels; I10 Essential (primary) hypertension; E66.811 Obesity, class 1; E66.09 Other obesity due to excess calories; E55.9 Vitamin D deficiency, unspecified; K76.0 Fatty (change of) liver, not elsewhere classified; R21 Rash and other nonspecific skin eruption; Z68.34 Body mass index [BMI] 34.0-34.9, adult; Z79.899 Other long term (current) drug therapy
CPT/HCPCS: 36415; 80053; 80061; 82306; 82607; 82746; 83540; 84443; 85025; 86704; 86706; 86709; 86803; 87340; 87389; 96127

== ENCOUNTER 2025-09-01 07:25 | Outpatient (AMB) | payer BC, SELFPAY ==
[2025-09-01 07:32] VITALS: BP 134/78; PULSE 78; O2SAT 98; BMI 34.4
--- NOTE | 2025-09-01 07:32 | MHC.PC.OV ---
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 The patient has a history of hypertension, managed with losartan 50 mg and hydrochlorothiazide, and reports that the patient's blood pressure is well-controlled. Past surgical history includes removal of a cyst and wisdom teeth extraction. The patient has a history of fatty liver, which was reportedly noted on a CT scan of the abdomen performed years ago for possible kidney stones. The patient also has a history of possible MRSA and a historically low vitamin D level, for which the patient takes supplements. The patient's mother had diabetes. The patient smokes marijuana and drinks beer a few times a week. The patient denies depression or anxiety but reports occasional sad thoughts about the patient's parents. Declines flu vaccine. The patient reports experiencing an itchy rash, for which the patient used hydrocortisone, which provided relief from the itching. A previous oral medication, possibly Bactrim prescribed for a past MRSA infection, had also resolved this rash. The patient also reports fatigue and occasional constipation. [facility] Medical History (Updated 09/01/25 @ 07:58 by Sana Mathur MD) Obesity Hypertension Surgical History [place] teeth extracted History of removal of cyst Family History Father No problems noted. Mother Diabetes mellitus, Onset Age: 58 Social History Housing: Apartment Alcohol intake: current Alcohol intake frequency: a few times a month Alcohol type: beer Patient Tobacco Use Status: Never used Tobacco Tobacco use type: Cigarette e-Cigarette/Vaping Use: Never Used Second Hand Smoke Exposure: No Substance Use Type: Marijuana service: No Current occupational status: employed Current occupational exposures/hazards: No Cognitive needs: No Hearing needs: No Vision needs: No Questionnaire PHQ-9 Over the last 2 weeks, how often have you been bothered by any of the following problems? 1. Little interest or pleasure in doing things: not at all 2. Feeling down, depressed, or hopeless: several days 3. Trouble falling or staying asleep, or sleeping too much: several days 4. Feeling tired or having little energy: not at all 5. Poor appetite or overeating: several days 6. Feeling bad about yourself - or that you are a failure or have let yourself or your family down: not at all 7. Trouble concentrating on things, such as reading the newspaper or watching television: not at all 8. Moving or speaking so slowly that other people could have noticed. Or the opposite - being so fidgety or restless that you have been moving around a lot more than usual: not at all 9. Thoughts that you would be better off or of hurting yourself in some way: not at all Total score: 3 Depression Screening Interpretation: Negative Depression Screening Done: Yes 79610 - PHQ-9 Billing: Yes Source: Developed by Drs. Junior Edouard, Kelly Goodwin, Papa Lamb and colleagues, with an educational trinity from [employer] Thrive Questionnaire Date Thrive assessed: 02/23/25 I am a: Patient What is your living situation today?: I have a steady place to live Within the past 12 months, did the food you bought not last and you didn't have the money to get more?: I choose not to answer this question Within the past 12 months, did you worry whether your food would run out before you got money to buy more?: I choose not to answer this question Do you have trouble paying for medicines?: No Do you have trouble getting transportation to medical appointments?: No Do you have trouble paying your heating and electricity bill?: No Do you have trouble taking care of your child, family member or friend?: No Do you have trouble with day-to-day activities such as bathing, preparing meals, shopping, managing finances, etc.?: No Are you currently unemployed and looking for a job?: No Are you interested in more education?: No Please select the resources that you would like help with: None Currently or been in a relationship where the following occur: I choose not to answer THRIVE Score: 0 AUDIT C Alcohol Use Questionnaire (AUDIT-C) 1. How often do you have a drink containing alcohol?: 2-3 times a week 2. How many drinks containing alcohol do you have on a typical day when you are drinking?: 5 or 6 3. How often do you have six or more drinks on one occasion?: Weekly Total Score: 8 ERLINDA-7 AMB Questionnaire ERLINDA-7 Date ERLINDA - 7 assessed: 02/25/25 Source: Developed by Drs. Junior Edouard, Kelly Goodwin, Papa Lamb and colleagues, with an educational trinity from [employer] Review of Systems Const All systems reviewed & are unremarkable except as noted in HPI and below Card Denies chest pain at rest, Denies chest pain with activity, Denies edema, Denies irregular heart rhythm, Denies claudication, Denies dyspnea, Denies dyspnea on exertion, Denies orthopnea, Denies paroxysmal nocturnal dyspnea and Denies slow heart rate Resp Denies cough, Denies dyspnea and Denies dyspnea on exertion GI Denies abdominal pain, Denies change in bowel habits, Denies excessive flatus, Denies nausea and Denies vomiting Physical exam (Primary Care) Vital Signs: Last Vital Signs Pulse 78 09/01/25 07:32 BP 134/78 09/01/25 07:32 Pulse Ox 98 09/01/25 07:32 Oxygen Delivery Method Room Air 09/01/25 07:32 BMI result Body Mass Index 34.4 BMI Assessment/Plan discussion: High BMI High, discussed plan: lifestyle, weight reduction, dietary and physical activity Tobacco/Smoking Status: Tobacco use Status Tobacco use date assessed 02/25/25 09/01/25 07:37 Patient Tobacco Use Status Never used Tobacco 09/01/25 07:37 Tobacco use type Cigarette 09/01/25 07:37 e-Cigarette/Vaping Use Never Used 09/01/25 07:37 PHQ-9: PHQ-9 Score PHQ-9: Total score 3 09/01/25 07:37 Depression Screening Interpretation: Negative Thrive Assessment: Date of Thrive Assessment Date Thrive assessed 02/23/25 09/01/25 07:37 Currently or been in a relationship where the following occur: I choose not to answer HENMT Head: Yes normal to inspection, Yes normocephalic and Yes atraumatic Ears: external ears normal Eyes General: appearance normal, both eyes and all related structures Eyelids: Yes eyelids normal Conjunctivae: conjunctivae normal Neck Neck: Yes normal visual inspection and Yes supple Resp Effort & Inspection: normal respiratory effort Auscultation: clear to auscultation bilaterally Cardio Jugular venous distension: no JVD Rate: regular rate Rhythm: regular rhythm Heart sounds: S1 normal heart sound present and S2 normal heart sound present GI Inspection: Yes normal to inspection Palpation (GI): Soft to palpation and nontender Auscultation: normal bowel sounds Skin Rashes: rashes noted maculopapular rash anterior chest Neuro General: no focal motor deficits Extrem General: Yes full ROM Psych Appearance: grossly normal Coding Level of Care Code Est Pt Level 3 (59544) Est Pt Prev Care 40-64y(84463) Diagnoses Physical exam Z00.00 Fatty liver K76.0 Rash R21 Additional Codes PHQ-9 - 14235 - PHQ-9 Billing: Yes ([id number]) Time Spent (min) 32 Assessment & Plan Assessment & Plan (1) Physical exam: Code(s): Z00.00 - Encounter for general adult medical examination without abnormal findings Category: Medical (2) Fatty liver: Code(s): K76.0 - Fatty (change of) liver, not elsewhere classified Category: Medical (3) Rash: Code(s): R21 - Rash and other nonspecific skin eruption Category: Medical Plan Plan 1. Physical exam Repeat in a year. 2. Fatty Liver Disease The patient has a history of fatty liver, noted on a prior CT scan. To re-evaluate the liver, an abdominal ultrasound will be ordered. Weight loss was recommended as the primary treatment, with a target weight of 170 lbs for the patient's height of 5'8 . 3. Pruritic Rash The patient reports a new, very itchy rash. On exam, the rash does not appear infected. The patient had a similar issue in the past that responded well to an oral medication, believed to be Bactrim, which was prescribed for a possible MRSA infection. A prescription for Bactrim will be sent to the patient's preferred pharmacy. 4. Hypertension The patient's hypertension is managed with hydrochlorothiazide and losartan 50 mg. The patient reports that the blood pressure is well-controlled. No changes will be made to the current regimen. Orders: Orders Complete Blood Count Auto Diff Today D64.9 - Anemia, unspecified IRON PROFILE Today D64.9 - Anemia, unspecified Thyroid Stimulating Hormone Today E66.09 - Other obesity due to excess calories, E66.811 - Obesity, class 1, Z68.34 - Body mass index [BMI] 34.0-34.9, adult US abdomen vasques w elastography Today K76.0 - Fatty (change of) liver, not elsewhere classified Vitamin D 25-OH Total Today E55.9 - Vitamin D deficiency, unspecified Lipid Panel Today E78.5 - Hyperlipidemia, unspecified Comprehensive [place]. Panel Fast Today I10 - Essential (primary) hypertension Vitamin B12 and Folate Today E53.8 - Deficiency of other specified B group vitamins HIV Ab/Ag Today Z11.4 - Encounter for screening for human immunodeficiency virus [HIV] Hepatitis A,B,C Profile Today R74.01 - Elevation of levels of liver transaminase levels Medications: New sulfamethoxazole-trimethoprim 800-160 mg (Bactrim DS) 1 tab PO BID 14 tabs 0RF 7 days
== END 2025-09-01 07:56 | disposition home or self-care (01) ==
LOC: HO.HMCH 07:25
PROVIDERS: PCP Internal Medicine; Visit Provider Internal Medicine
DX: Z00.00 Encounter for general adult medical examination without abnormal findings (principal); R21 Rash and other nonspecific skin eruption; K76.0 Fatty (change of) liver, not elsewhere classified